=== PATIENT | male | born 1975 | race American Indian/Alaskan Native ===

== ENCOUNTER 2017-05-10 16:31 | Inpatient (IN) | payer OTHER ==
[2017-05-10] MEDS ORDERED: HYDROmorphone 1 mg/ml ISec IVP STA (17:29)
[2017-05-10] MEDS ORDERED: HYDROmorphone 1 mg/ml ISec ONE (17:38)
--- NOTE | 2017-05-10 17:43 | RAD ---
HISTORY: SOB COMPARISON: None available. TECHNIQUE: Chest, one view. FINDINGS: LUNGS: No focal consolidation. Please note that chest x-ray has limited sensitivity for the detection of pulmonary masses. PLEURA: No significant pleural effusion identified. No definite pneumothorax . CARDIOVASCULAR: Heart size appears within normal limits. Ectatic aorta. Right peritracheal opacity; adenopathy is not excluded. OSSEOUS STRUCTURES: No acute osseous abnormality identified. VISUALIZED UPPER ABDOMEN: Unremarkable. OTHER FINDINGS: None. IMPRESSION: Right peritracheal opacity; adenopathy is not excluded. CT of the chest with contrast may be considered if clinically indicated. No focal consolidation, significant pleural effusion, or definite pneumothorax identified.
[2017-05-10 18:06] LABS: BASO # 0.1 K/uL (0.0-0.2); BASO % 0.6 % (0.0-2.0); EOS # 0.3 K/uL (0.0-0.7); EOS % 2.2 % (0.0-4.0); HEMOGLOBIN 12.6 g/dL (12.0-18.0); LYMPH # 3.3 K/uL (1.0-4.3); LYMPH % 26.2 % (20.0-40.0); MEAN CORPUSCULAR HEMOGLOBIN 27.3 pg (27.0-31.0); MEAN CORPUSCULAR HGB CONC 32.5 g/dL (33.0-37.0); MEAN PLATELET VOLUME 6.8 fL (7.2-11.7); MONO # 0.7 K/uL (0.0-0.8); MONO % 5.8 % (0.0-10.0); NEUT # 8.3 K/uL (1.8-7.0); NEUT % 65.2 % (50.0-75.0); RBC 4.6 Mil/uL (4.40-5.90); RED CELL DISTRIBUTION WIDTH 16.4 % (11.5-14.5); WHITE BLOOD COUNT 12.7 K/uL (4.8-10.8)
[2017-05-10 18:07] LABS: SQUAMOUS EPITHIAL 1 /hpf (0-5); URINE BILIRUBIN NEGATIVE (NEGATIVE); URINE BLOOD NEGATIVE (NEGATIVE); URINE CLARITY Hazy (Clear); URINE GLUCOSE (UA) NORMAL (Normal); URINE LEUKOCYTE ESTERASE NEG Leu/uL (Negative); URINE NITRATE NEGATIVE (NEGATIVE); URINE PROTEIN NEGATIVE (NEGATIVE); URINE UROBILINOGEN NORMAL mg/dL (0.2-1.0)
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
[2017-05-10 18:12] LABS: ALBUMIN 3.6 g/dL (3.5-5.0); URINE COLOR YELLOW (YELLOW)
[2017-05-10 18:15] LABS: ALB/GLOB RATIO 1.2 (1.0-2.1); AST/SGOT 35 U/L (17-59); GFR AFRICAN-AMERICAN > 60; GFR NON-AFRICAN AMERICAN > 60
[2017-05-10 18:16] LABS: ALT/SGPT 46 U/L (21-72); BLOOD UREA NITROGEN 10 mg/dL (9-20); CALCIUM 8.6 mg/dl (8.6-10.4)
[2017-05-10 18:21] LABS: BARBITURATES, UR NEGATIVE (NEGATIVE)
[2017-05-10 18:25] LABS: PHENCYCLIDINE, UR NEGATIVE (NEGATIVE)
[2017-05-10 18:39] LABS: BENZODIAZEPINES, UR POSITIVE (NEGATIVE); OPIATES, UR POSITIVE (NEGATIVE)
[2017-05-11] MEDS ORDERED: Iodixanol 320 MG/ML 100 ML BOTTLE IV ONE (10:12)
--- NOTE | 2017-05-11 11:23 | CARD ---
APPROVED REPORT EKG Measurement Heart [id number] <Conclusion> Normal sinus rhythm Low voltage QRS Nonspecific T wave abnormality Abnormal ECG
[2017-05-11] MEDS ORDERED: Gadodiamide 287 mg/ml 20 ml IV ONE (11:53)
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
--- NOTE | 2017-05-11 12:58 | CT ---
EXAM: CT Chest With Intravenous Contrast CLINICAL HISTORY: 41 years old, male; Pain; Other: Back pain & leg pain; Additional info: R/O adenopathy TECHNIQUE: Axial computed tomography images of the chest with intravenous contrast. This CT exam was performed using one or more of the following dose reduction techniques: automated exposure control, adjustment of the mA and/or kV according to patient size, and/or use of iterative reconstruction technique. Coronal and sagittal reformatted images were created and reviewed. CONTRAST: 100 mL of visipaque administered intravenously. EXAM DATE/TIME: 05/11/2017 8:26 AM COMPARISON: No relevant prior studies available. FINDINGS: Lungs: Subsegmental atelectases left greater than right lower lobes. No consolidation. No mass. Pleural space: Unremarkable. No pneumothorax. No significant effusion. Heart: Unremarkable. No cardiomegaly. No significant pericardial effusion. Bones/joints: Spondylosis of the thoracic spine with appearance of diffuse idiopathic skeletal hyperostosis (DISH). No acute fracture. No dislocation. Soft tissues: Unremarkable. Vasculature: Unremarkable. No thoracic aortic aneurysm. Lymph nodes: Mediastinal and hilar nodes of 1 cm and less. IMPRESSION: Subsegmental atelectases left greater than right lower lobes.
[2017-05-11] MEDS: oxyCODONE 30 mg Immediate Release Tab PO PRN (13:03)
[2017-05-11] MEDS: Enoxaparin 40 mg Syringe SC SCH (13:05)
--- NOTE | 2017-05-11 15:38 | MRI ---
PROCEDURE: MRI lumbar spine dated 05/11/2017. HISTORY: Back pain secondary from previous laminectomy. COMPARISON: No prior study available for comparison however correlation made with CT scan abdomen pelvis 02/28/2013 which also image the lumbar spine in 3 planes. TECHNIQUE: Multiecho multiplanar sequences were performed through the lumbar spine before and following intravenous injection of approximately 20 cc of Omniscan contrast material At the L5-S1 level, there is mild age related disc desiccation. Disc space height maintained. The facet joints are quite hypertrophic. . There is mild broad-based disc bulge that reaches the ventral surfaces of the descending S1 nerve roots however the overall central canal is adequate at this level. The exit foramina are mildly narrowed left greater than right. At the L 4 L5 level, there is mild age related disc desiccation. Minor posterior disc space narrowing. Small central and bilateral disc bulge extends slightly into the proximal inferior margin of right exit foramen. The disc results some flattening of the ventral surface of the thecal sac. The overall central canal is minimally narrowed at this level. Facets are hypertrophic and flavum buckled. Exit foramina are also and marginal to minimally narrowed. At the L3-L4 level, there is mild disc desiccation and minor disc space narrowing. Small broad-based disc bulge ridge complex results in flattening of the ventral surface of thecal sac. Facets also quite hypertrophic and flavum buckled. There is moderate central canal stenosis. The exit foramina are mildly narrowed with slight flattening of the anterior inferior borders of both exiting L3 nerve roots. At the L2-L3 level, mild age related disc desiccation and minimal posterior disc space narrowing. No disc herniation or significant disc bulge. Facets are hypertrophic. Central canal appears adequate as do the exit foramina. Similar changes seen at the L1-L2 and T12-L1 levels. . The conus terminates at approximately the T12-L1 level. Impression: Multilevel degenerative spondylosis most notably affecting the L3-L4 and L4-L5 levels with significant hypertrophic facet joint changes at nearly every level
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
[2017-05-12] MEDS: oxyCODONE 30 mg Immediate Release Tab PO PRN ×4 (01:19→18:41)
[2017-05-12] MEDS: Enoxaparin 40 mg Syringe SC SCH (09:18)
[2017-05-12 10:25] LABS: FREE T4 1.15 ng/dL (0.78-2.19)
[2017-05-12] MEDS ORDERED: Gadodiamide 287 mg/ml 20 ml IV ONE (10:37)
[2017-05-12 11:15] LABS: FOLATE 16.1 ng/mL
[2017-05-12] MEDS ORDERED: TIZANIDINE 4 MG PO SCH (15:15)
--- NOTE | 2017-05-12 15:16 | CP.PCM.HP ---
History of Present Illness - History of Present Illness History of Present Illness: pain neck and back radiating to upper and lower extremitis Present on Admission - Present on Admission Any Indicators Present on Admission: No Review of Systems - Review of Systems Systems not reviewed;Unavailable: Acuity of Condition - Constitutional Constitutional: Fatigue - EENT Eyes: As Per HPI Ears: As Per HPI Nose/Mouth/Throat: As Per HPI - Cardiovascular Cardiovascular: As Per HPI - Respiratory Respiratory: Dyspnea on Exertion - Gastrointestinal Gastrointestinal: Constipation - Genitourinary Genitourinary: As Per HPI - Reproductive: Male Reproductive:Male: As Per HPI - Musculoskeletal Musculoskeletal: Arthralgias, Back Pain, Muscle Weakness, Neck Pain, Numbness, Radiating Pain into Limb, Stiffness, Tingling - Integumentary Integumentary: As Per HPI - Neurological Neurological: Numbness, Paresthesias, Tingling, Weakness - Psychiatric Psychiatric: Anxiety - Endocrine Endocrine: As Per HPI - Hematologic/Lymphatic Hematologic: As Per HPI Past Patient History - Past Medical History & Family History Past Medical History?: Yes - Past Social History Smoking Status: Heavy Smoker > 10 Cigarettes Daily - CARDIAC Hx Hypertension: Yes - PULMONARY Hx Respiratory Disorders: No - NEUROLOGICAL Hx Neurological Disorder: Yes Hx Alzheimer's Disease: No HX Cerebrovascular Accident: No Hx Dementia: No Hx Dizziness: No Hx Meningitis: No Hx Migraine: No Hx Multiple Sclerosis: No Hx Paralysis: No Hx Parkinson's Disease: No Hx Seizures: No Hx Syncope: No Hx Transient Ischemic Attacks (TIA): No Hx Vertigo: No Other/Comment: "pins & needles" to fingers & toes, lower back pain since age 13 , carpel tunnel both hands - HEENT Hx HEENT Problems: No - RENAL Hx Chronic Kidney Disease: No - ENDOCRINE/METABOLIC Hx Diabetes Mellitus Type 2: Yes (resolved) - HEMATOLOGICAL/ONCOLOGICAL Hx Blood Disorders: No - INTEGUMENTARY Hx Dermatological Problems: No - MUSCULOSKELETAL/RHEUMATOLOGICAL Hx Arthritis: Yes (BACK; NECK) - GASTROINTESTINAL Hx Gastrointestinal Disorders: No - GENITOURINARY/GYNECOLOGICAL Hx Genitourinary Disorders: No - PSYCHIATRIC Hx Psychophysiologic Disorder: No Hx Substance Use: No - SURGICAL HISTORY Hx Surgeries: Yes Hx Abdominal Aortic Aneurysm Repair: No Hx Amputation: No Hx Angiogram: No Hx Angioplasty: No Hx Appendectomy: No Hx Arteriovenous Shunt: No Hx Arthroscopy: No Hx Bile Duct Stent: No Hx Breast Biopsy: No Hx Cataract Extraction: No Hx Cardiac Catheterization: No Hx Carotid Endarterectomy: No Hx Section: No Hx Cholecystectomy: No Hx Coronary Artery Bypass Graft: No Hx Coronary Stent: No Hx Dilation and Curettage: No Hx Eye Surgery: No Hx Gastric Bypass Surgery: Yes ( stated patient had gastric bypass and resolved DM) Hx Herniorrhaphy: No Hx Hysterectomy: No Hx Joint Replacement: No Hx Kidney Transplant: No Hx Liver Transplant: No Hx Mastectomy: No Hx Musculoskeletal Surgery: No Hx Open Heart Surgery: No Hx Open Reduction Internal Fixation: No Hx Orthopedic Surgery: No Hx Parathyroidectomy: No Hx Penile Implant: No Hx Pulmonary Surgery: No Hx Splenectomy: No Hx Thyroidectomy: No Hx Tonsillectomy: No Hx Tubal Ligation: No Hx Valve Replacement: No Hx Vascular Surgery: No Hx Vascular Access Device: No Other/Comment: 2 laminectomies, gastric bypass, - ANESTHESIA Hx Anesthesia: No Hx Anesthesia Reactions: No Hx Malignant Hyperthermia: No Has any member of the family had a problem w/ anesthesia?: No Meds Allergies/Adverse Reactions: Allergies Allergy/AdvReac Type Severity Reaction Status Date / Time No Known Allergies Allergy Verified 05/10/17 16:47 Physical Exam - Constitutional Appears: Non-toxic - Head Exam Head Exam: NORMAL INSPECTION - Eye Exam Eye Exam: Normal appearance Pupil Exam: NORMAL ACCOMODATION - ENT Exam ENT Exam: Mucous Membranes Moist - Neck Exam Neck exam: Positive for: Tenderness - Respiratory Exam Respiratory Exam: Decreased Breath Sounds - Cardiovascular Exam Cardiovascular Exam: REGULAR RHYTHM - GI/Abdominal Exam GI & Abdominal Exam: Normal Bowel Sounds - Rectal Exam Rectal Exam: NORMAL INSPECTION - Extremities Exam Extremities exam: Positive for: tenderness - Back Exam Back exam: CVA tenderness (L) - Neurological Exam Neurological exam: Alert, Oriented x3 - Psychiatric Exam Psychiatric exam: Normal Mood - Skin Skin Exam: Normal Color Results - Vital Signs Recent Vital Signs: Last Vital Signs Temp 98.4 F 05/12/17 08:00 Pulse 101 H 05/12/17 08:00 Resp 20 05/12/17 08:00 BP 155/76 H 05/12/17 08:00 Pulse Ox 95 05/12/17 08:00 - Labs Result Diagrams: 05/10/17 18:01 05/10/17 18:01 Labs: Laboratory Results - last 24 hr 05/12/17 05/12/17 05/12/17 09:19 09:19 09:19 ESR 5 C-React Prot High Sens 4.02 H Vitamin B12 Folate Free T4 1.15 TSH 3rd Generation 1.49 Rheum Arthritis Panel Negative 05/12/17 09:19 ESR C-React Prot High Sens Vitamin B12 > 1000 H Folate 16.1 Free T4 TSH 3rd Generation Rheum Arthritis Panel Assessment & Plan - Assessment and Plan (Free Text) Assessment: cervical ls disc herniation radiculopathy pain neck and back ac on chronic anexiety carpaltunnel syndrome overwt Plan: as per orders
--- NOTE | 2017-05-12 15:37 | US ---
PROCEDURE: Ultrasound of urinary bladder HISTORY: assess bladder capacity R/O returntion COMPARISON: Not available TECHNIQUE: Transabdominal FINDINGS: The distended urinary bladder measures 407 cc. The wall is smooth. There is no intraluminal mass. There is no gross mural thickening. The examination is somewhat technically limited. Bilateral ureteral jets are demonstrated. Postvoid, there is no residual urine within the bladder. IMPRESSION: No postvoid residual.
[2017-05-12] MEDS: Multiple Vitamins Tab PO SCH (16:45)
[2017-05-12 16:59] LABS: RAPID PLASMA REAGIN NONREACTIVE (NONREACTIVE)
[2017-05-12] MEDS: DICLOFENAC PO SCH (18:35)
[2017-05-13] MEDS: oxyCODONE 30 mg Immediate Release Tab PO PRN ×3 (03:27→20:31)
[2017-05-13] MEDS: Multiple Vitamins Tab PO SCH (09:08)
[2017-05-13] MEDS: Enoxaparin 40 mg Syringe SC SCH (09:10)
[2017-05-13] MEDS: DICLOFENAC PO SCH (09:10)
[2017-05-13] MEDS: TIZANIDINE 4 MG PO SCH (09:10)
[2017-05-13] MEDS: Pantoprazole 40 mg EC Tab PO SCH (09:12)
[2017-05-13 09:27] LABS: BASO # 0.1 K/uL (0.0-0.2); BASO % 1.2 % (0.0-2.0); EOS # 0.4 K/uL (0.0-0.7); EOS % 3.5 % (0.0-4.0); HEMOGLOBIN 12.4 g/dL (12.0-18.0); LYMPH # 3.2 K/uL (1.0-4.3); LYMPH % 28.5 % (20.0-40.0); MEAN CELL VOLUME 85.4 fL (80.0-94.0); MEAN CORPUSCULAR HEMOGLOBIN 27.4 pg (27.0-31.0); MEAN CORPUSCULAR HGB CONC 32.1 g/dL (33.0-37.0); MEAN PLATELET VOLUME 7.3 fL (7.2-11.7); MONO # 0.7 K/uL (0.0-0.8); MONO % 5.9 % (0.0-10.0); NEUT # 6.9 K/uL (1.8-7.0); NEUT % 60.9 % (50.0-75.0); RBC 4.51 Mil/uL (4.40-5.90); RED CELL DISTRIBUTION WIDTH 16.9 % (11.5-14.5); WHITE BLOOD COUNT 11.3 K/uL (4.8-10.8)
[2017-05-13 09:55] LABS: GFR AFRICAN-AMERICAN > 60; GFR NON-AFRICAN AMERICAN > 60
[2017-05-13 09:56] LABS: BLOOD UREA NITROGEN 12 mg/dL (9-20); CALCIUM 8.1 mg/dl (8.6-10.4)
--- NOTE | 2017-05-13 11:01 | CP.PCM.PN ---
Subjective - Date & Time of Evaluation Date of Evaluation: 05/13/17 Time of Evaluation: 10:58 - Subjective Subjective: PT STILL C/O PAIN NECK AND BACK DIFICULTY AMBULATING Objective - Vital Signs/Intake and Output Vital Signs (last 24 hours): Temp Pulse Resp BP Pulse Ox 98.2 F 83 20 154/104 H 95 05/13/17 08:18 05/13/17 08:18 05/13/17 08:18 05/13/17 08:18 05/13/17 08:18 Intake and Output: 05/13/17 05/13/17 06:59 18:59 Intake Total 500 Balance 500 - Medications Medications: Current Medications Alprazolam (Xanax) 0.25 mg PO BID [facility] Stop: 05/19/17 18:01 Last Admin: 05/13/17 09:12 Dose: 0.25 mg Enoxaparin Sodium (Lovenox) 40 mg SC DAILY [facility] Last Admin: 05/13/17 09:10 Dose: 40 mg Gabapentin (Neurontin) 300 mg PO TID [facility] Last Admin: 05/13/17 09:08 Dose: 300 mg Home Med (Patient's Own Medication) 1 tab PO TID [facility] Last Admin: 05/13/17 09:10 Dose: 1 tab Home Med (Patient's Own Medication) 2 tab PO DAILY [facility] Last Admin: 05/13/17 09:10 Dose: 2 tab Morphine Sulfate (Morphine) 1 mg IVP Q6 PRN PRN Reason: Pain, moderate (4-7) Last Admin: 05/13/17 08:32 Dose: 1 mg Multivitamins (Hexavitamin) 1 tab PO DAILY [facility] Last Admin: 05/13/17 09:08 Dose: 1 tab Nicotine (Nicoderm Cq) 1 patch TD DAILY [facility] Last Admin: 05/13/17 09:10 Dose: 1 patch Oxycodone HCl (Oxycodone Immediate Release Tab) 30 mg PO QID PRN PRN Reason: Pain, Mild (1-3) Last Admin: 05/13/17 09:08 Dose: 30 mg Pantoprazole Sodium (Protonix Ec Tab) 40 mg PO DAILY [facility] Last Admin: 05/13/17 09:12 Dose: 40 mg - Labs Labs: 05/13/17 09:03 05/13/17 09:03 - Constitutional Appears: Non-toxic - Head Exam Head Exam: NORMAL INSPECTION - Eye Exam Eye Exam: Normal appearance Pupil Exam: NORMAL ACCOMODATION - ENT Exam ENT Exam: Normal Exam - Neck Exam Neck Exam: Tenderness - Respiratory Exam Respiratory Exam: Clear to Ausculation Bilateral - Cardiovascular Exam Cardiovascular Exam: REGULAR RHYTHM - GI/Abdominal Exam GI & Abdominal Exam: Normal Bowel Sounds - Rectal Exam Rectal Exam: NORMAL INSPECTION - Exam Exam: NORMAL INSPECTION - Extremities Exam Extremities Exam: Normal Inspection - Back Exam Back Exam: CVA tenderness (L) - Neurological Exam Neurological Exam: Alert, Oriented x3 - Psychiatric Exam Psychiatric exam: Normal Affect - Skin Skin Exam: Normal Color Assessment and Plan - Assessment and Plan (Free Text) Assessment: DTDD NECK AND BACK 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
--- NOTE | 2017-05-13 12:02 | CP.PCM.CON ---
History of Present Illness - History of Present Illness History of Present Illness: dictated SEVERE spinal cord compression with signal change at C4/5 requires decompression in near future d/w Pt and , agreeable will schedule in am Past Patient History - Past Medical History & Family History Past Medical History?: Yes - Past Social History Smoking Status: Heavy Smoker > 10 Cigarettes Daily - CARDIAC Hx Hypertension: Yes - PULMONARY Hx Respiratory Disorders: No - NEUROLOGICAL Hx Neurological Disorder: Yes Hx Alzheimer's Disease: No HX Cerebrovascular Accident: No Hx Dementia: No Hx Dizziness: No Hx Meningitis: No Hx Migraine: No Hx Multiple Sclerosis: No Hx Paralysis: No Hx Parkinson's Disease: No Hx Seizures: No Hx Syncope: No Hx Transient Ischemic Attacks (TIA): No Hx Vertigo: No Other/Comment: "pins & needles" to fingers & toes, lower back pain since age 13 , carpel tunnel both hands - HEENT Hx HEENT Problems: No - RENAL Hx Chronic Kidney Disease: No - ENDOCRINE/METABOLIC Hx Diabetes Mellitus Type 2: Yes (resolved) - HEMATOLOGICAL/ONCOLOGICAL Hx Blood Disorders: No - INTEGUMENTARY Hx Dermatological Problems: No - MUSCULOSKELETAL/RHEUMATOLOGICAL Hx Arthritis: Yes (BACK; NECK) - GASTROINTESTINAL Hx Gastrointestinal Disorders: No - GENITOURINARY/GYNECOLOGICAL Hx Genitourinary Disorders: No - PSYCHIATRIC Hx Psychophysiologic Disorder: No Hx Substance Use: No - SURGICAL HISTORY Hx Surgeries: Yes Hx Abdominal Aortic Aneurysm Repair: No Hx Amputation: No Hx Angiogram: No Hx Angioplasty: No Hx Appendectomy: No Hx Arteriovenous Shunt: No Hx Arthroscopy: No Hx Bile Duct Stent: No Hx Breast Biopsy: No Hx Cataract Extraction: No Hx Cardiac Catheterization: No Hx Carotid Endarterectomy: No Hx Section: No Hx Cholecystectomy: No Hx Coronary Artery Bypass Graft: No Hx Coronary Stent: No Hx Dilation and Curettage: No Hx Eye Surgery: No Hx Gastric Bypass Surgery: Yes ( stated patient had gastric bypass and resolved DM) Hx Herniorrhaphy: No Hx Hysterectomy: No Hx Joint Replacement: No Hx Kidney Transplant: No Hx Liver Transplant: No Hx Mastectomy: No Hx Musculoskeletal Surgery: No Hx Open Heart Surgery: No Hx Open Reduction Internal Fixation: No Hx Orthopedic Surgery: No Hx Parathyroidectomy: No Hx Penile Implant: No Hx Pulmonary Surgery: No Hx Splenectomy: No Hx Thyroidectomy: No Hx Tonsillectomy: No Hx Tubal Ligation: No Hx Valve Replacement: No Hx Vascular Surgery: No Hx Vascular Access Device: No Other/Comment: 2 laminectomies, gastric bypass, - ANESTHESIA Hx Anesthesia: No Hx Anesthesia Reactions: No Hx Malignant Hyperthermia: No Has any member of the family had a problem w/ anesthesia?: No Meds Allergies/Adverse Reactions: Allergies Allergy/AdvReac Type Severity Reaction Status Date / Time No Known Allergies Allergy Verified 05/10/17 16:47 - Medications Medications: Current Medications Alprazolam (Xanax) 0.25 mg PO BID [facility] Stop: 05/19/17 18:01 Last Admin: 05/13/17 09:12 Dose: 0.25 mg Docusate Sodium (Colace) 100 mg PO BID [facility] Enoxaparin Sodium (Lovenox) 40 mg SC DAILY [facility] Last Admin: 05/13/17 09:10 Dose: 40 mg Gabapentin (Neurontin) 300 mg PO TID [facility] Last Admin: 05/13/17 09:08 Dose: 300 mg Home Med (Patient's Own Medication) 2 tab PO DAILY [facility] Last Admin: 05/13/17 09:10 Dose: 2 tab Morphine Sulfate (Morphine) 1 mg IVP Q6 PRN PRN Reason: Pain, moderate (4-7) Last Admin: 05/13/17 08:32 Dose: 1 mg Multivitamins (Hexavitamin) 1 tab PO DAILY [facility] Last Admin: 05/13/17 09:08 Dose: 1 tab Nicotine (Nicoderm Cq) 1 patch TD DAILY [facility] Last Admin: 05/13/17 09:10 Dose: 1 patch Oxycodone HCl (Oxycodone Immediate Release Tab) 30 mg PO QID PRN PRN Reason: Pain, Mild (1-3) Last Admin: 05/13/17 09:08 Dose: 30 mg Pantoprazole Sodium (Protonix Ec Tab) 40 mg PO DAILY [facility] Last Admin: 05/13/17 09:12 Dose: 40 mg Results - Vital Signs Recent Vital Signs: Last Vital Signs Temp 98.2 F 05/13/17 08:18 Pulse 83 05/13/17 08:18 Resp 20 05/13/17 08:18 BP 154/104 H 05/13/17 08:18 Pulse Ox 95 05/13/17 08:18 - Labs Result Diagrams: 05/13/17 09:03 05/13/17 09:03 Labs: Laboratory Results - last 24 hr 05/12/17 05/13/17 05/13/17 09:19 09:03 09:03 WBC 11.3 H RBC 4.51 Hgb 12.4 Hct 38.5 MCV 85.4 MCH 27.4 MCHC 32.1 L RDW 16.9 H Plt Count 300 MPV 7.3 Neut % (Auto) 60.9 Lymph % (Auto) 28.5 Warrick % (Auto) 5.9 Eos % (Auto) 3.5 Baso % (Auto) 1.2 Neut # 6.9 Lymph # 3.2 Warrick # 0.7 Eos # 0.4 Baso # 0.1 Sodium 137 Potassium 4.0 Chloride 101 Carbon Dioxide 26 Anion Gap 14 BUN 12 Creatinine 0.5 L Est GFR ( Amer) > 60 Est GFR (Non-Af Amer) > 60 POC Glucose (mg/dL) Random Glucose 121 H Calcium 8.1 L Rheum Arthritis Panel Negative RPR Nonreactive 05/13/17 11:10 WBC RBC Hgb Hct MCV MCH MCHC RDW Plt Count MPV Neut % (Auto) Lymph % (Auto) Warrick % (Auto) Eos % (Auto) Baso % (Auto) Neut # Lymph # Warrick # Eos # Baso # Sodium Potassium Chloride Carbon Dioxide Anion Gap BUN Creatinine Est GFR ( Amer) Est GFR (Non-Af Amer) POC Glucose (mg/dL) 111 H Random Glucose Calcium Rheum Arthritis Panel RPR
[2017-05-13 14:05] LABS: PROTHROMBIN TIME 11.4 SECONDS (9.7-12.2)
--- NOTE | 2017-05-13 16:29 | PN ---
DATE: 05/13/2017 NEUROLOGICAL PROBLEM: Cervical myelopathy, probably herniated disk. Status post fall syndrome. PHYSICAL EXAMINATION: VITAL SIGNS: Blood pressure 154/104, 105, mean arterial pressure of 120, respiratory rate 18, temperature afebrile. NEUROLOGIC: The patient is awake, alert. Mentation is normal. Upper extremities unchanged. 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 The left leg is somewhat weaker than the right leg. Knees are 3+, both ankles are 2+. Plantars are equivocal response on the left side, right side was downgoing. Sensory examination is inconsistent. WORKUP: Bladder sonogram no evidence of retention of the urine. MRI of the cervical spine showed cord compression over C4-C5 region and C5-C6 some lesser extent. More pronounced pressure on his left than his right side. There is some evidence of herniated disk compressing the thoracic level, as well over T2 region. This has to be reviewed with the radiologist. IMPRESSION AND PLAN: Considering his radiological evidence, the patient was started on steroids and a neurosurgical consult was called in. The patient was seen by neurosurgeon this morning and he is scheduled to have decompression surgery tomorrow. Steroids will be continued until the surgery is done. Narcotics should be given only p.r.n. basis. The patient's blood pressure should be controlled as well. The patient's condition has been discussed with him, his and his mother-in- law at the bedside showing the radiological evidence of his problem and the current issues with him. They agree with all of my plan. The patient is scheduled for decompression tomorrow. Cristopher Estrada MD cc: [id number] TT: 05/13/2017 16:28:12 Confirmation # [id number] Dictation # [id number] liz OTERO
--- NOTE | 2017-05-13 17:40 | CON ---
This is a 41-year-old gentleman. Apparently, he has a long history of back problems, was being treat ed by a banner painter, Dr. Parrish, as well as physiotherapy for the past several months . Apparently, the focus was on his lumbar spine. He is status post 2 laminectomy procedures approxi mately 15 years ago. In any case, the patient gives a very clear history of having had pain and dyse sthesias down both arms into his fingers with tingling and incoordination for months. Apparently, he had an EMG performed and was told he had bilateral carpal tunnel. No MRI of the cervical spine was performed. The patient states that approximately 5 days ago he was trying to bottom turner of bed and he fell and was essentially paralyzed. He could not move his legs. He had inability to move his hands with severe pain and numbness radiating down both arms. He had to wait 45 minutes for his to come home and help him up. Ultimately, he was brought to the [facility] ER it seems a day or 2 later. His wo rk-up here eventually led to MRI of the cervical spine being performed yesterday, which documented se sherley disk ridge complex at C4-C5 with severe cord compression and signal change. Interviewing the patient today, he states that since the actual event, he has fortuitously improved r emarkably. He still has considerable weakness, particularly in his right leg, difficulty standing an d great difficulty walking. He also notes a fair amount of urinary urgency. He is able to control h is urine, no bowel problems. Notes that the incoordination and numbness in his hands has improved dr stacie and he has now only mild to moderate residual weakness in the hands. PAST MEDICAL HISTORY: Reviewed, mostly significant as above. He has mild hyperglycemia, hypertensio n, peptic ulcer disease. MEDICATIONS AND SOCIAL HISTORY: Reviewed in the chart. PHYSICAL EXAMINATION: He does have 5/5 strength proximally upper extremities; however, finger abduct ion and adduction are significantly weak. Wrist flexion is moderately weak. In the lower extremitie s, he has trace weakness proximally, i.e. hip flexors, knee extensors, distally within normal limits. He has 3+ hyperreflexia from the triceps on down (not the biceps). He has a markedly positive Anya man's on the right, equivocal on the left. Plantars are mute bilaterally. His gait was not tested. He does have good proprioception bilaterally. The MRI of the cervical spine documents a dramatic severe disk ridge complex with severe spinal cord compression, signal change and myelomalacia at the 4-5 level. There is minimal to moderate stenosis at 5-6. MRI of the thoracic spine is a relatively benign study. MRI of the lumbar spine shows moder ate areas of central lateral recess and foraminal stenosis, most prominently at L3-L4. Obviously, th is is not his problem. 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 I expl ained to the patient and his that unequivocally I would recommend relatively urgent decompressio n specifically anterior diskectomy, decompression, fusion and fixation. I showed him the nature of h is pathology on his MRI. I spoke to the at length. We discussed the rationale behind the recom mendation, the details of procedure, potential risks, complications, chance of success and recovery t saad. I answered all their questions. They are interested in proceeding. As it is Sunday, we will h ave to organize the surgery probably tomorrow morning and hope for Sunday. I left my card a nd indicated to the two of them that should they have any questions or concerns in the interim not to hesitate to contact me. In the interim also, we will stop his anti-inflammatory and his Lovenox in preparation for the surgery. Petey Roldan MD cc: [id number] TT: 05/13/2017 17:39:47 liz
[2017-05-13] MEDS ORDERED: methylPREDNISolone 500 MG in Sodium Chloride 0.9% 100 ML IVPB ONE (18:00)
[2017-05-14] MEDS: oxyCODONE 30 mg Immediate Release Tab PO PRN ×4 (02:35→23:28)
[2017-05-14] MEDS: Multiple Vitamins Tab PO SCH (09:05)
[2017-05-14] MEDS: Pantoprazole 40 mg EC Tab PO SCH (09:05)
[2017-05-14] MEDS: TIZANIDINE 4 MG PO SCH (09:07)
[2017-05-14] MEDS ORDERED: methylPREDNISolone 500 MG in Sodium Chloride 0.9% 100 ML IVPB ONE (10:00)
--- NOTE | 2017-05-14 13:10 | MRI ---
PROCEDURE: MRI of the cervical spine dated 05/12/2017 HISTORY: Myelopathy at C7-T1 COMPARISON: No prior TECHNIQUE: Multiecho multiplanar sequences were performed through the cervical spine with and without the use of intravenous before and following intravenous injection of approximately 20 cc of Omniscan contrast material. FINDINGS. Current study reveals no acute compression fractures no retropulsed fragments. . Vertebral bodies exhibit relatively normal stature of. Vertebral bodies and facets normally aligned. 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 . Multilevel degenerative spondylosis. At the C2-C3 level, there is mild disc desiccation and minor anterior disc space narrowing. No disc herniation or significant disc bulge. Facets are slightly overgrown. Central canal and exit foramina are adequate. At the C3-C4 level, there is mild disc desiccation however disc space height is relatively maintained. Small asymmetric central and bilateral (slightly larger on the left and right) disc bulge ridge complex contiguous with hypertrophic uncovertebral joints. The disc ridge complex results in mild central canal narrowing and compression of the ventral surface of the spinal cord left greater than right. The facets are hypertrophic. Exit foramina are stenotic bilaterally right greater than left. At the C 4 C5 level, there is disc desiccation however disc space height is relatively maintained. The large central and bilateral (asymmetrically larger on the right than left) results in significant canal stenosis and significant cord compression. There is appears to be a tiny curvilinear nonenhancing area of increased T2 signal within the cervical spinal cord at this level consistent with gliosis/myelomalacia. . Hypertrophic uncovertebral facet joints with bilateral foraminal stenosis. At the C5-C6 level, there is disc desiccation however disc space height is maintained. Small to medium-sized central and bilateral disc herniation ridge complex also contiguous with hypertrophic uncovertebral joints. The facets are hypertrophic as well. Changes result in significant canal stenosis and cord compression. Exit foramina are stenotic bilaterally. At the C6-C7 level, there is disc desiccation. Disc space height maintained. Small central and bilateral disc herniation ridge complex also results in mild to moderate canal stenosis and cord compression. Exit foramina are stenotic bilaterally due to overgrown uncovertebral facets left greater than right. There are no focal areas of abnormal contrast enhancement seen to suggest discitis osteomyelitis. . 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 There is also a small area of gliosis and/or myelomalacia within the cervical spinal cord at the C4-C5 level. .
--- NOTE | 2017-05-14 13:30 | MRI ---
PROCEDURE: MRI thoracic spine dated 05/12/2017 HISTORY: Myelopathy sensory level at T4-T6 COMPARISON: No prior TECHNIQUE: Multiecho multiplanar sequences were performed through the thoracic spine before and following intravenous injection of approximately 20 cc Omniscan contrast material. Note the examination is somewhat limited by motion artifact FINDINGS: The current study reveals no acute compression fractures nor retropulsed fragments. Mild multilevel chronic appearing anterior wedge deformities seen in the mid thoracic region felt to be degenerative in origin. The vertebral bodies otherwise exhibit normal stature . There is slight increase kyphosis due to the aforementioned at anterior wedge deformities however vertebral bodies and facets otherwise normally aligned. Multilevel bilateral laminectomy defects seen extending from the T4-T5 . Through the T7-T8 levels relieving well was felt to represent pre-existing underlying congenital canal stenosis over these levels. .Additionally, multilevel degenerative spondylosis present Changes include varying degrees of disc space narrowing with cortical endplate irregularity and/tiny chronic Schmorl's node most notably affecting the mid-lower thoracic disc space levels. . At the T6-T7 level, there is also small focal central and bilateral disc bulge complex that does compress the ventral surface of the spinal cord however the overall central canal appears mild to moderately narrowed. . There appears to be underlying mild congenital canal narrowing. No disc herniations nor significant disc bulges seen at the remaining levels. At the at T7-T8 level, there is small asymmetric left-sided ridge disc complex that results in some flattening of the ventral surface of the thecal sac and spinal cord. The central canal at this level is also mildly narrowed. Facet joints are mildly hypertrophic. No definitive focal areas of abnormal signal seen within the visualized spinal cord. There are no focal areas of abnormal contrast enhancement within or along the surfaces of the visualized spinal cord. No evidence of abnormal enhancement within the disc spaces are endplates to suggest discitis osteomyelitis. Mild multilevel facet arthropathy. Conus terminates at approximately the upper T12-L1 level. Impression: Limited motion degraded study Multilevel bilateral laminectomy from the T4 T5 through the T7-T8 levels. Multilevel chronic anterior wedge deformities of the mid to lower thoracic segments felt to be degenerative in origin. The there is a persistent underlying mild congenital canal narrowing. Small central and bilateral focal disc bulge at the T6-T7 level results in mild focal cord compression. There is also a small asymmetric left-sided ridge disc complex that results in some mild flattening of the ventral surface of the thecal sac and cord is well. The No definitive intrinsic signal changes or enhancement within or along the surfaces of the visualized spinal cord. Pop pop core limited
--- NOTE | 2017-05-14 17:43 | CP.PCM.PN ---
Subjective - Date & Time of Evaluation Date of Evaluation: 05/07/17 Time of Evaluation: 17:40 - Subjective Subjective: pt c/o of back pain seen by neurosrgery for tomoro denied any sob or chest pain Objective - Vital Signs/Intake and Output Vital Signs (last 24 hours): Temp Pulse Resp BP Pulse Ox 98.4 F 83 20 146/94 H 98 05/14/17 14:00 05/14/17 14:00 05/14/17 14:00 05/14/17 14:00 05/14/17 14:00 Intake and Output: 05/14/17 05/14/17 06:59 18:59 Intake Total 600 Balance 600 - Medications Medications: Current Medications Alprazolam (Xanax) 0.25 mg PO BID [facility] Stop: 05/19/17 18:01 Last Admin: 05/14/17 09:05 Dose: 0.25 mg Calcium/Vitamin D (Oscal-D 250 Mg-125 Units Tab) 1 tab PO DAILY [facility] Docusate Sodium (Colace) 100 mg PO BID [facility] Last Admin: 05/14/17 09:05 Dose: 100 mg Gabapentin (Neurontin) 300 mg PO TID [facility] Last Admin: 05/14/17 14:01 Dose: 300 mg Home Med (Patient's Own Medication) 2 tab PO DAILY [facility] Last Admin: 05/14/17 09:07 Dose: 2 tab Morphine Sulfate (Morphine) 1 mg IVP Q6 PRN PRN Reason: Pain, moderate (4-7) Last Admin: 05/14/17 13:58 Dose: 1 mg Multivitamins (Hexavitamin) 1 tab PO DAILY [facility] Last Admin: 05/14/17 09:05 Dose: 1 tab Nicotine (Nicoderm Cq) 1 patch TD DAILY [facility] Last Admin: 05/14/17 09:03 Dose: 1 patch Oxycodone HCl (Oxycodone Immediate Release Tab) 30 mg PO QID PRN PRN Reason: Pain, Mild (1-3) Last Admin: 05/14/17 16:20 Dose: 30 mg Pantoprazole Sodium (Protonix Ec Tab) 40 mg PO DAILY [facility] Last Admin: 05/14/17 09:05 Dose: 40 mg - Labs Labs: 05/13/17 09:03 05/13/17 09:03 PT 11.4 SECONDS (9.7-12.2) 05/13/17 13:38 INR 1.0 05/13/17 13:38 APTT 37 SECONDS (21-34) H 05/13/17 13:38 - Constitutional Appears: Non-toxic - Head Exam Head Exam: NORMAL INSPECTION - Eye Exam Eye Exam: Normal appearance Pupil Exam: NORMAL ACCOMODATION - ENT Exam ENT Exam: Mucous Membranes Moist - Respiratory Exam Respiratory Exam: Clear to Ausculation Bilateral - Cardiovascular Exam Cardiovascular Exam: REGULAR RHYTHM - GI/Abdominal Exam GI & Abdominal Exam: Normal Bowel Sounds - Rectal Exam Rectal Exam: NORMAL INSPECTION - Extremities Exam Additional comments: oedeama - Neurological Exam Neurological Exam: Abnormal Gait, Oriented x3 - Psychiatric Exam Psychiatric exam: Normal Affect - Skin Skin Exam: Normal Color Assessment and Plan - Assessment and Plan (Free Text) Assessment: back pain disc hernitio radiculopthy dificulty ambulating dm atrlectasis Plan: pre operative orders
[2017-05-14] MEDS: Calcium-Vit D 250 mg-125 Units Tab UD PO SCH (18:45)
[2017-05-15] MEDS: oxyCODONE 30 mg Immediate Release Tab PO PRN (04:25)
[2017-05-15 07:04] LABS: % CD4 (T HELPER CELL) 58 Percent (30-61); % CD8 (SUPPRESSOR T CELL) 18 Percent (12-42); ABSOLUTE CD4 CELLS 1892 Cells/mcL (490-1740); ABSOLUTE CD8 CELLS 573 Cells/mcL (180-1170); ABSOLUTE LYMPHOCYTES 3259 Cells/mcL (850-3900)
[2017-05-15] MEDS ORDERED: Midazolam 2 MG/2 ML VIAL ONE (07:18)
[2017-05-15] MEDS ORDERED: Propofol 10 mg/ml Inj (20 ML) ONE ×5 (07:19→09:46)
[2017-05-15] MEDS ORDERED: Bupivacaine 0.5% Inj(30mL) ONE (07:48)
[2017-05-15] MEDS ORDERED: cefTRIAXone IV 1 gm in Dextros 0 ML IVPB ONE (07:48)
[2017-05-15] MEDS ORDERED: Absorbable Gelatin Sponge Size 100 ONE (07:48)
[2017-05-15] MEDS ORDERED: Lidocaine 2% w Epi 1:100,000 Inj IJ ONE (07:49)
[2017-05-15] MEDS ORDERED: Thrombin Topical 5,000 IU Spray Kit ONE (07:49)
[2017-05-15] MEDS ORDERED: Bacitracin 50,000 UNIT in Sodium Chloride 0.9% Irrig 1,000 ML IR STA (07:53)
[2017-05-15] MEDS ORDERED: Sodium Chloride 0.9% 20 ML IV ONE (07:57)
[2017-05-15] MEDS ORDERED: Remifentanil 1 mg/3 ml Vial IV ONE ×2 (08:13→10:33)
[2017-05-15] MEDS: ceFAZolin IV 2 gm in Dextrose 1 GM/50 ML BAG IVPB ONE ×2 (08:15→08:47)
[2017-05-15] MEDS ORDERED: Lactated Ringer's 1,000 ML IV ONE ×3 (08:15→10:05)
[2017-05-15] MEDS ORDERED: ceFAZolin IV 2 gm in Dextrose 0 GM/0 ML BAG IVPB ONE (08:19)
[2017-05-15] MEDS ORDERED: Bacitracin Ointment 30 GM TUBE ONE (08:30)
[2017-05-15 08:33] LABS: HEMOGLOBIN 12.6 g/dL (12.0-18.0); MEAN CELL VOLUME 84.5 fL (80.0-94.0); MEAN CORPUSCULAR HEMOGLOBIN 27.1 pg (27.0-31.0); MEAN CORPUSCULAR HGB CONC 32.1 g/dL (33.0-37.0); MEAN PLATELET VOLUME 7.5 fL (7.2-11.7); RBC 4.63 Mil/uL (4.40-5.90); RED CELL DISTRIBUTION WIDTH 16.5 % (11.5-14.5)
[2017-05-15 08:44] LABS: PROTHROMBIN TIME 10.8 SECONDS (9.7-12.2)
[2017-05-15] MEDS ORDERED: Succinylcholine Chloride 20 mg/ml Syr (5 ml) IV ONE (09:59)
[2017-05-15] MEDS: Calcium-Vit D 250 mg-125 Units Tab UD PO SCH (10:05)
[2017-05-15] MEDS: Multiple Vitamins Tab PO SCH (10:05)
[2017-05-15] MEDS: TIZANIDINE 4 MG PO SCH (10:05)
[2017-05-15] MEDS ORDERED: Propofol 10 mg/ml 1,000 MG/100 ML VIAL ONE (10:34)
[2017-05-15] MEDS: Pantoprazole 40 mg EC Tab PO SCH (10:45)
--- NOTE | 2017-05-15 10:50 | RAD ---
Chest x-ray two views History: Preoperative evaluation. Comparison: None available. Findings: Mild venous congestion. Patchy increased markings at the left lung base. Linear transversely oriented increased markings at the left mid to lower lung zone which may represent discoid atelectasis. Clinical correlation and or correlation with chest CT may be helpful if clinically indicated. Heart size within normal limits. Degenerative changes in the spine and shoulders. Impression: Mild venous congestion. Patchy increased markings at the left lung base. Linear transversely oriented increased markings at the left mid to lower lung zone which may represent discoid atelectasis. Clinical correlation and or correlation with chest CT may be helpful if clinically indicated.
[2017-05-15] MEDS ORDERED: HYDROmorphone 1 mg/ml ISec IVP ONE (11:45)
[2017-05-15] MEDS: HYDROmorphone 0.5 mg/0.5 ml ISec IVP PRN ×6 (11:46→14:47)
[2017-05-15] MEDS ORDERED: HYDROmorphone 0.5 mg/0.5 ml ISec ONE (11:46)
[2017-05-15] MEDS ORDERED: Morphine 4 MG/ML VIAL IV PRN (11:54)
--- NOTE | 2017-05-15 12:43 | RAD ---
PROCEDURE: Intraoperative Fluoroscopy. HISTORY: HERNIATED DISC FINDINGS: Fluoroscopic assistance was provided for anterior cervical C4-5 Multiple overlying drains and liss. Clinical correlation.
[2017-05-15 13:34] LABS: 23 KD (IGG) BAND Nonreactive
[2017-05-15] MEDS ORDERED: HYDROmorphone 1 mg/ml ISec ONE (14:47)
[2017-05-15 15:17] LABS: HTLV-I-II AB W/REFL CONF Nonreactive (Nonreactive)
[2017-05-15] MEDS: Lactated Ringer's 1,000 ML IV SCH (17:00)
[2017-05-16] MEDS: Lactated Ringer's 1,000 ML IV SCH ×3 (01:40→11:00)
[2017-05-16] MEDS: TIZANIDINE 4 MG PO SCH (11:00)
[2017-05-16] MEDS: Multiple Vitamins Tab PO SCH (11:02)
[2017-05-16] MEDS: Calcium-Vit D 250 mg-125 Units Tab UD PO SCH (11:05)
[2017-05-16] MEDS: Pantoprazole 40 mg EC Tab PO SCH (11:05)
--- NOTE | 2017-05-16 11:14 | CP.PCM.PN ---
Subjective - Date & Time of Evaluation Date of Evaluation: 05/16/17 Time of Evaluation: 11:11 - Subjective Subjective: s/p cervical disc herniation surgery don yesterday pt still in pain canot raise left arm Objective - Vital Signs/Intake and Output Vital Signs (last 24 hours): Temp Pulse Resp BP Pulse Ox 97.9 F 90 20 161/99 H 99 05/16/17 07:10 05/16/17 07:10 05/16/17 07:10 05/16/17 07:10 05/16/17 07:10 Intake and Output: 05/16/17 05/16/17 06:59 18:59 Intake Total 920 Output Total 590 Balance 330 - Medications Medications: Current Medications Alprazolam (Xanax) 0.25 mg PO BID [facility] Stop: 05/19/17 18:01 Last Admin: 05/16/17 11:02 Dose: 0.25 mg Calcium/Vitamin D (Oscal-D 250 Mg-125 Units Tab) 1 tab PO DAILY [facility] Last Admin: 05/16/17 11:05 Dose: 1 tab Docusate Sodium (Colace) 100 mg PO BID [facility] Last Admin: 05/16/17 11:02 Dose: 100 mg Gabapentin (Neurontin) 300 mg PO TID [facility] Last Admin: 05/16/17 11:02 Dose: 300 mg Home Med (Patient's Own Medication) 2 tab PO DAILY [facility] Last Admin: 05/15/17 10:05 Dose: Not Given Hydromorphone/Sodium Chloride (Dilaudid Ton Container Filler) 6 mg IV Q4H PRN; Protocol PRN Reason: Pain, severe (8-10) Last Admin: 05/16/17 11:00 Dose: 6 mg Lactated Ringer's (Lactated Ringer's) 1,000 mls @ 75 mls/hr IV .[id number] [facility] Multivitamins (Hexavitamin) 1 tab PO DAILY [facility] Last Admin: 05/16/17 11:02 Dose: 1 tab Nicotine (Nicoderm Cq) 1 patch TD DAILY [facility] Last Admin: 05/16/17 11:05 Dose: 1 patch Pantoprazole Sodium (Protonix Ec Tab) 40 mg PO DAILY [facility] Last Admin: 05/16/17 11:05 Dose: 40 mg - Labs Labs: 05/15/17 08:19 05/13/17 09:03 PT 10.8 SECONDS (9.7-12.2) 05/15/17 08:19 INR 1.0 05/15/17 08:19 APTT 21 SECONDS (21-34) D 05/15/17 08:19 - Constitutional Appears: In Acute Distress - Head Exam Head Exam: NORMAL INSPECTION - Eye Exam Eye Exam: Normal appearance Pupil Exam: NORMAL ACCOMODATION - ENT Exam ENT Exam: Normal Exam - Neck Exam Additional comments: has cervical collar on - Respiratory Exam Respiratory Exam: NORMAL BREATHING PATTERN - Cardiovascular Exam Cardiovascular Exam: REGULAR RHYTHM - GI/Abdominal Exam GI & Abdominal Exam: Normal Bowel Sounds - Neurological Exam Neurological Exam: Alert, Oriented x3 - Psychiatric Exam Psychiatric exam: Normal Affect - Skin Skin Exam: Normal Color Assessment and Plan - Assessment and Plan (Free Text) Assessment: s/p cervical disc surgery Plan: as per neuro surgery
--- NOTE | 2017-05-16 11:28 | CP.PCM.PN ---
Subjective - Date & Time of Evaluation Date of Evaluation: 05/16/17 Time of Evaluation: 11:26 - Subjective Subjective: POD 1 doing well feels dec numbness in ue's L delt still plegic,biceps only min weakness otherwise good strength P PT OOb SS eval cont [employer] Objective - Vital Signs/Intake and Output Vital Signs (last 24 hours): Temp Pulse Resp BP Pulse Ox 97.9 F 90 20 161/99 H 99 05/16/17 07:10 05/16/17 07:10 05/16/17 07:10 05/16/17 07:10 05/16/17 07:10 Intake and Output: 05/16/17 05/16/17 06:59 18:59 Intake Total 920 Output Total 590 Balance 330 - Medications Medications: Current Medications Alprazolam (Xanax) 0.25 mg PO BID [facility] Stop: 05/19/17 18:01 Last Admin: 05/16/17 11:02 Dose: 0.25 mg Calcium/Vitamin D (Oscal-D 250 Mg-125 Units Tab) 1 tab PO DAILY [facility] Last Admin: 05/16/17 11:05 Dose: 1 tab Docusate Sodium (Colace) 100 mg PO BID [facility] Last Admin: 05/16/17 11:02 Dose: 100 mg Gabapentin (Neurontin) 300 mg PO TID [facility] Last Admin: 05/16/17 11:02 Dose: 300 mg Home Med (Patient's Own Medication) 2 tab PO DAILY [facility] Last Admin: 05/15/17 10:05 Dose: Not Given Hydromorphone/Sodium Chloride (Dilaudid Technology Lead) 6 mg IV Q4H PRN; Protocol PRN Reason: Pain, severe (8-10) Last Admin: 05/16/17 11:00 Dose: 6 mg Lactated Ringer's (Lactated Ringer's) 1,000 mls @ 75 mls/hr IV .[id number] [facility] Multivitamins (Hexavitamin) 1 tab PO DAILY [facility] Last Admin: 05/16/17 11:02 Dose: 1 tab Nicotine (Nicoderm Cq) 1 patch TD DAILY [facility] Last Admin: 05/16/17 11:05 Dose: 1 patch Pantoprazole Sodium (Protonix Ec Tab) 40 mg PO DAILY [facility] Last Admin: 05/16/17 11:05 Dose: 40 mg - Labs Labs: 05/15/17 08:19 05/13/17 09:03 PT 10.8 SECONDS (9.7-12.2) 05/15/17 08:19 INR 1.0 05/15/17 08:19 APTT 21 SECONDS (21-34) D 05/15/17 08:19
[2017-05-16 13:58] LABS: BASO # 0.1 K/uL (0.0-0.2); BASO % 0.4 % (0.0-2.0); EOS % 0.2 % (0.0-4.0); LYMPH # 4.1 K/uL (1.0-4.3); LYMPH % 26.1 % (20.0-40.0); MEAN CELL VOLUME 84.7 fL (80.0-94.0); MEAN CORPUSCULAR HEMOGLOBIN 27.6 pg (27.0-31.0); MEAN CORPUSCULAR HGB CONC 32.6 g/dL (33.0-37.0); MEAN PLATELET VOLUME 7.3 fL (7.2-11.7); MONO # 1.8 K/uL (0.0-0.8); MONO % 11.2 % (0.0-10.0); NEUT # 9.8 K/uL (1.8-7.0); NEUT % 62.1 % (50.0-75.0); RBC 4.7 Mil/uL (4.40-5.90); RED CELL DISTRIBUTION WIDTH 16.3 % (11.5-14.5); WHITE BLOOD COUNT 15.7 K/uL (4.8-10.8)
[2017-05-16 14:08] LABS: GFR AFRICAN-AMERICAN > 60; GFR NON-AFRICAN AMERICAN > 60
[2017-05-16 14:09] LABS: BLOOD UREA NITROGEN 12 mg/dL (9-20); CALCIUM 8.5 mg/dl (8.6-10.4)
[2017-05-17] MEDS: Lactated Ringer's 1,000 ML IV SCH ×2 (00:28→14:19)
--- NOTE | 2017-05-17 07:30 | CP.PCM.PN ---
Subjective - Date & Time of Evaluation Date of Evaluation: 05/17/17 Time of Evaluation: 07:28 - Subjective Subjective: POST SURGICAL LEFT ARM C4-C5 WEAKNESS SENSORY SYMPTOMS RESOLVED STILL MYELOPATHIC PLAN EMPHERICAL STEROID AVOID NECK MANIPULATION CAT CERVICAL SPINE Objective - Vital Signs/Intake and Output Vital Signs (last 24 hours): Temp Pulse Resp BP Pulse Ox 98.2 F 87 20 143/87 95 05/16/17 23:35 05/16/17 23:35 05/16/17 23:35 05/16/17 23:35 05/16/17 23:35 - Medications Medications: Current Medications Alprazolam (Xanax) 0.25 mg PO BID [facility] Stop: 05/19/17 18:01 Last Admin: 05/16/17 17:45 Dose: 0.25 mg Calcium/Vitamin D (Oscal-D 250 Mg-125 Units Tab) 1 tab PO DAILY [facility] Last Admin: 05/16/17 11:05 Dose: 1 tab Dexamethasone (Decadron Inj) 10 mg IV Q8H [facility] Stop: 05/19/17 07:12 Docusate Sodium (Colace) 100 mg PO BID [facility] Last Admin: 05/16/17 17:45 Dose: 100 mg Gabapentin (Neurontin) 300 mg PO TID [facility] Last Admin: 05/16/17 17:45 Dose: 300 mg Home Med (Patient's Own Medication) 2 tab PO DAILY [facility] Last Admin: 05/16/17 11:00 Dose: Not Given Hydromorphone/Sodium Chloride (Dilaudid Middleware Developer) 6 mg IV Q4H PRN; Protocol PRN Reason: Pain, severe (8-10) Last Admin: 05/17/17 01:28 Dose: 6 mg Lactated Ringer's (Lactated Ringer's) 1,000 mls @ 75 mls/hr IV .[id number] [facility] Last Admin: 05/17/17 00:28 Dose: 75 mls/hr Multivitamins (Hexavitamin) 1 tab PO DAILY [facility] Last Admin: 05/16/17 11:02 Dose: 1 tab Nicotine (Nicoderm Cq) 1 patch TD DAILY [facility] Last Admin: 05/16/17 11:05 Dose: 1 patch Pantoprazole Sodium (Protonix Ec Tab) 40 mg PO DAILY [facility] Last Admin: 05/16/17 11:05 Dose: 40 mg - Labs Labs: 05/16/17 13:45 05/16/17 13:45 PT 10.8 SECONDS (9.7-12.2) 05/15/17 08:19 INR 1.0 05/15/17 08:19 APTT 21 SECONDS (21-34) D 05/15/17 08:19
[2017-05-17] MEDS: Dexamethasone 4 mg/1 ml IV SCH ×3 (07:55→23:09)
--- NOTE | 2017-05-17 09:37 | CT ---
PROCEDURE: CT Cervical Spine without contrast HISTORY: Status post ACDF 2 days ago, new left arm weakness. > COMPARISON: MRI cervical spine without contrast from 05/12/2017 TECHNIQUE: Axial computed tomography images were obtained of the cervical spine without the use of intravenous contrast. Coronal and sagittal reformatted images were created and reviewed. Radiation dose: Total exam DLP = 659.40 mGy-cm. This CT exam was performed using one or more of the following dose reduction techniques: Automated exposure control, adjustment of the mA and/or kV according to patient size, and/or use of iterative reconstruction technique. FINDINGS: VERTEBRAE: There is moderate levoscoliosis in the cervical spine. There is straightening of the cervical spine with loss of normal cervical lordosis. Vertebral alignment is normal. Vertebral height is maintained. There is no acute fracture or spondylolisthesis. Status post ACDF at C4-5. The anterior metallic plate and screw at C4 are well seated. This metallic screw at C5 in is directed caudally. There are postsurgical changes in the left neck with soft tissue emphysema in the T8 muscles related to recent surgery. There is also a 1.0 x 1.2 cm round fluid density lesion in the subcutaneous fat anterior to the platysma and inferior to the left mandible most compatible with a sebaceous cyst. DISCS/SPINAL CANAL/NEURAL FORAMINA: C2-3: Disc osteophyte complex and asymmetric left uncovertebral joint hypertrophy results in moderate left neural foraminal stenosis. No spinal canal stenosis. C3-4: Broad-based disc osteophyte complex and asymmetric left greater than right uncovertebral joint hypertrophy results in severe right and [id number] left neural foraminal stenosis and mild spinal canal stenosis. C4-5: Status post ACDF, there are several foci of air in the left disc space related to recent surgery. There is redemonstration of a broad-based central and right paracentral disc protrusion which results in mild mass effect on the ventral cord and severe spinal canal stenosis. Also noted is asymmetric [id number]-right uncovertebral joint hypertrophy with moderate right and severe left neural foraminal stenosis. In addition, there is apparent abnormal soft tissue in the left far posterolateral and foraminal region which probably results in mass effect on the exiting C5 nerve root. C5-6: Broad-based central disc protrusion indents the ventral cord and results in moderate spinal canal stenosis. Also noted is asymmetric left greater than right uncovertebral joint hypertrophy which results in moderate right and severe left neural foraminal stenosis. C6-7: Broad-based disc osteophyte complex indents the ventral cord and results in moderate spinal canal stenosis. Asymmetric left greater than right uncovertebral joint hypertrophy results in moderate right and severe left neural foraminal stenosis. C7-T1: Broad-based disc osteophyte complex, mild uncovertebral joint hypertrophy and mild bilateral facet arthropathy results in mild bilateral neural foraminal stenosis without spinal canal stenosis. PARASPINAL SOFT TISSUES: Unremarkable. OTHER FINDINGS: Please note evaluation of cervical cord and discs is severely limited on noncontrast CT examination. IMPRESSION: 1. Status post ACDF at C4-5, evaluation of discs and spinal cord is limited on noncontrast CT examination. Allowing for this, redemonstration of broad-based central and right paracentral disc protrusion at C4-5 which results in mild mass effect on the ventral cord and severe spinal canal stenosis. Also noted is moderate right and severe left neural foraminal stenosis. In addition, apparent soft tissue in the left posterolateral and foraminal regions could represent postoperative edematous tissue/granulation tissue or disc however further characterization is limited on CT examination. MRI of the cervical spine without contrast would be helpful for better evaluation of discs and cord. 2. Postsurgical changes in the left neck. 3. Additional comments as described above.
[2017-05-17] MEDS: Pantoprazole 40 mg EC Tab PO SCH (09:56)
[2017-05-17] MEDS: Multiple Vitamins Tab PO SCH (09:59)
[2017-05-17] MEDS: Calcium-Vit D 250 mg-125 Units Tab UD PO SCH (10:00)
[2017-05-17] MEDS: TIZANIDINE 4 MG PO SCH ×2 (10:01→16:06)
--- NOTE | 2017-05-17 14:23 | CP.PCM.PN ---
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 will start po pain meds spoke with Pt and re rec for posterior decompression in near future Objective - Vital Signs/Intake and Output Vital Signs (last 24 hours): Temp Pulse Resp BP Pulse Ox 98.2 F 87 20 143/87 95 05/16/17 23:35 05/16/17 23:35 05/16/17 23:35 05/16/17 23:35 05/16/17 23:35 - Medications Medications: Current Medications Alprazolam (Xanax) 0.25 mg PO BID [facility] Stop: 05/19/17 18:01 Last Admin: 05/17/17 09:56 Dose: 0.25 mg Calcium/Vitamin D (Oscal-D 250 Mg-125 Units Tab) 1 tab PO DAILY [facility] Last Admin: 05/17/17 10:00 Dose: 1 tab Dexamethasone (Decadron Inj) 10 mg IV Q8H [facility] Stop: 05/19/17 07:12 Last Admin: 05/17/17 14:15 Dose: 10 mg Docusate Sodium (Colace) 100 mg PO BID [facility] Last Admin: 05/17/17 09:56 Dose: 100 mg Gabapentin (Neurontin) 300 mg PO TID [facility] Last Admin: 05/17/17 09:59 Dose: 300 mg Home Med (Patient's Own Medication) 2 tab PO DAILY [facility] Last Admin: 05/17/17 10:01 Dose: Not Given Hydromorphone/Sodium Chloride (Dilaudid Outside Contractor Sales) 6 mg IV Q4H PRN; Protocol PRN Reason: Pain, severe (8-10) Last Admin: 05/17/17 11:09 Dose: 6 mg Lactated Ringer's (Lactated Ringer's) 1,000 mls @ 75 mls/hr IV .[id number] [facility] Last Admin: 05/17/17 14:19 Dose: 75 mls/hr Multivitamins (Hexavitamin) 1 tab PO DAILY [facility] Last Admin: 05/17/17 09:59 Dose: 1 tab Nicotine (Nicoderm Cq) 1 patch TD DAILY [facility] Last Admin: 05/17/17 10:00 Dose: 1 patch Pantoprazole Sodium (Protonix Ec Tab) 40 mg PO DAILY [facility] Last Admin: 05/17/17 09:56 Dose: 40 mg - Labs Labs: 05/16/17 13:45 05/16/17 13:45 PT 10.8 SECONDS (9.7-12.2) 05/15/17 08:19 INR 1.0 05/15/17 08:19 APTT 21 SECONDS (21-34) D 05/15/17 08:19
[2017-05-17] MEDS ORDERED: ceFAZolin IV 1 gm in Dextrose 1 GM/50 ML BAG IVPB SCH (16:15)
--- NOTE | 2017-05-17 17:29 | CP.PCM.PN ---
Subjective - Date & Time of Evaluation Date of Evaluation: 05/17/17 Time of Evaluation: 17:26 - Subjective Subjective: pain neck s/p surgery 2 pastiles infected oonig pus canot sleep started ambulating Objective - Vital Signs/Intake and Output Vital Signs (last 24 hours): Temp Pulse Resp BP Pulse Ox 98.1 F 95 H 18 133/92 H 100 05/17/17 16:00 05/17/17 16:00 05/17/17 16:00 05/17/17 16:00 05/17/17 16:00 - Medications Medications: Current Medications Alprazolam (Xanax) 0.25 mg PO BID [facility] Stop: 05/19/17 18:01 Last Admin: 05/17/17 09:56 Dose: 0.25 mg Calcium/Vitamin D (Oscal-D 250 Mg-125 Units Tab) 1 tab PO DAILY [facility] Last Admin: 05/17/17 10:00 Dose: 1 tab Dexamethasone (Decadron Inj) 10 mg IV Q8H [facility] Stop: 05/19/17 07:12 Last Admin: 05/17/17 14:15 Dose: 10 mg Docusate Sodium (Colace) 100 mg PO BID [facility] Last Admin: 05/17/17 09:56 Dose: 100 mg Gabapentin (Neurontin) 300 mg PO TID [facility] Last Admin: 05/17/17 14:57 Dose: 300 mg Home Med (Patient's Own Medication) 2 tab PO DAILY [facility] Last Admin: 05/17/17 16:06 Dose: 2 tab Hydromorphone HCl (Dilaudid) 4 mg PO Q4H PRN PRN Reason: Pain, moderate (4-7) Cefazolin Sodium/Dextrose (Ancef Iv 1 Gm Duplex) 1 gm in 50 mls @ 100 mls/hr IVPB Q8H [facility] Multivitamins (Hexavitamin) 1 tab PO DAILY [facility] Last Admin: 05/17/17 09:59 Dose: 1 tab Nicotine (Nicoderm Cq) 1 patch TD DAILY [facility] Last Admin: 05/17/17 10:00 Dose: 1 patch Oxycodone HCl (Oxycontin Extended Release Tab) 20 mg PO Q12 [facility] Pantoprazole Sodium (Protonix Ec Tab) 40 mg PO DAILY [facility] Last Admin: 05/17/17 09:56 Dose: 40 mg - Labs Labs: 05/16/17 13:45 06/28/17 13:45 PT 10.8 SECONDS (9.7-12.2) 05/15/17 08:19 INR 1.0 05/15/17 08:19 APTT 21 SECONDS (21-34) D 05/15/17 08:19 - Constitutional Appears: Non-toxic - Head Exam Head Exam: NORMAL INSPECTION - Eye Exam Eye Exam: Normal appearance Pupil Exam: NORMAL ACCOMODATION - ENT Exam ENT Exam: Mucous Membranes Moist - Neck Exam Additional comments: has clor on - Respiratory Exam Respiratory Exam: NORMAL BREATHING PATTERN - Cardiovascular Exam Cardiovascular Exam: REGULAR RHYTHM - GI/Abdominal Exam GI & Abdominal Exam: Normal Bowel Sounds - Rectal Exam Rectal Exam: NORMAL INSPECTION - Exam Exam: NORMAL INSPECTION External exam: Lesions (pastuls) - Neurological Exam Neurological Exam: Normal Gait Neuro motor strength exam: Left Upper Extremity: 0 (extend it) - Psychiatric Exam Psychiatric exam: Normal Affect - Skin Skin Exam: Normal Color Assessment and Plan - Assessment and Plan (Free Text) Assessment: s/p neckdisc herniation surgery l a=UEXT PARESIS pastuls Plan: as per orders
[2017-05-17] MEDS: ceFAZolin IV 1 gm in Dextrose 1 GM/50 ML BAG IVPB SCH (18:47)
[2017-05-17] MEDS: oxyCODONE 20 mg ER Tab (oxyCONTIN) PO SCH (22:00)
[2017-05-18 01:04] VITALS: RESP 20
[2017-05-18] MEDS: ceFAZolin IV 1 gm in Dextrose 1 GM/50 ML BAG IVPB SCH ×2 (03:04→10:01)
[2017-05-18 06:35] LABS: BASO % 0.1 % (0.0-2.0); HEMOGLOBIN 12.5 g/dL (12.0-18.0); LYMPH # 1.4 K/uL (1.0-4.3); LYMPH % 8.1 % (20.0-40.0); MEAN CELL VOLUME 84.1 fL (80.0-94.0); MEAN CORPUSCULAR HEMOGLOBIN 27.4 pg (27.0-31.0); MEAN CORPUSCULAR HGB CONC 32.6 g/dL (33.0-37.0); MEAN PLATELET VOLUME 7.3 fL (7.2-11.7); MONO # 1.5 K/uL (0.0-0.8); MONO % 8.7 % (0.0-10.0); NEUT # 14.3 K/uL (1.8-7.0); NEUT % 83.1 % (50.0-75.0); PLATELET COUNT 318 K/uL (130-400); RBC 4.57 Mil/uL (4.40-5.90); RED CELL DISTRIBUTION WIDTH 15.9 % (11.5-14.5); WHITE BLOOD COUNT 17.2 K/uL (4.8-10.8)
[2017-05-18 07:49] LABS: ALBUMIN 3.4 g/dL (3.5-5.0)
[2017-05-18 07:52] LABS: ALB/GLOB RATIO 1.1 (1.0-2.1); GFR AFRICAN-AMERICAN > 60; GFR NON-AFRICAN AMERICAN > 60
[2017-05-18 07:53] LABS: ALT/SGPT 48 U/L (21-72); AST/SGOT 25 U/L (17-59); BLOOD UREA NITROGEN 14 mg/dL (9-20); CALCIUM 8.8 mg/dl (8.6-10.4)
[2017-05-18] MEDS: Dexamethasone 4 mg/1 ml IV SCH (08:00)
[2017-05-18 08:37] LABS: ANISOCYTOSIS SLIGHT; LYMPHOCYTE 11 % (20-40); MONOCYTE 8 % (0-10); NEUTROPHIL 80 % (50-75); PLATELET ESTIMATE NORMAL (NORMAL); REACTIVE LYMPHOCYTES 1 % (0-0); TOTAL CELLS COUNTED 100
[2017-05-18] MEDS: oxyCODONE 20 mg ER Tab (oxyCONTIN) PO SCH (09:53)
[2017-05-18] MEDS: Multiple Vitamins Tab PO SCH (09:55)
[2017-05-18] MEDS: Calcium-Vit D 250 mg-125 Units Tab UD PO SCH (09:55)
[2017-05-18] MEDS: TIZANIDINE 4 MG PO SCH (09:56)
[2017-05-18] MEDS: Pantoprazole 40 mg EC Tab PO SCH (09:56)
--- NOTE | 2017-05-18 12:08 | CP.PCM.PN ---
Subjective - Date & Time of Evaluation Date of Evaluation: 05/18/17 Time of Evaluation: 12:03 - Subjective Subjective: pt still has pain neck s/p sutgery has new thrush in his mouth Objective - Vital Signs/Intake and Output Vital Signs (last 24 hours): Temp Pulse Resp BP Pulse Ox 98.4 F 96 H 20 171/93 H 96 05/18/17 08:06 05/18/17 08:06 05/18/17 08:06 05/18/17 08:06 05/18/17 04:29 - Medications Medications: Current Medications Alprazolam (Xanax) 0.25 mg PO BID [facility] Stop: 05/19/17 18:01 Last Admin: 05/18/17 09:56 Dose: 0.25 mg Calcium/Vitamin D (Oscal-D 250 Mg-125 Units Tab) 1 tab PO DAILY [facility] Last Admin: 05/18/17 09:55 Dose: 1 tab Dexamethasone (Decadron) 4 mg PO Q8H [facility] Last Admin: 05/18/17 09:55 Dose: 4 mg Docusate Sodium (Colace) 100 mg PO BID [facility] Last Admin: 05/18/17 09:56 Dose: 100 mg Gabapentin (Neurontin) 300 mg PO TID [facility] Last Admin: 05/18/17 09:55 Dose: 300 mg Home Med (Patient's Own Medication) 2 tab PO DAILY [facility] Last Admin: 05/18/17 09:56 Dose: 2 tab Hydromorphone HCl (Dilaudid) 4 mg PO Q4H PRN PRN Reason: Pain, moderate (4-7) Last Admin: 05/18/17 10:57 Dose: 4 mg Cefazolin Sodium/Dextrose (Ancef Iv 1 Gm Duplex) 1 gm in 50 mls @ 100 mls/hr IVPB Q8H [facility] Last Admin: 05/18/17 10:01 Dose: 100 mls/hr Multivitamins (Hexavitamin) 1 tab PO DAILY [facility] Last Admin: 05/18/17 09:55 Dose: 1 tab Nicotine (Nicoderm Cq) 1 patch TD DAILY [facility] Last Admin: 05/18/17 09:55 Dose: 1 patch Oxycodone HCl (Oxycontin Extended Release Tab) 20 mg PO Q12 [facility] Last Admin: 05/18/17 09:53 Dose: 20 mg Pantoprazole Sodium (Protonix Ec Tab) 40 mg PO DAILY [facility] Last Admin: 05/18/17 09:56 Dose: 40 mg Zolpidem Tartrate (Ambien) 5 mg PO HS PRN PRN Reason: Insomnia Last Admin: 05/17/17 22:00 Dose: 5 mg - Labs Labs: 05/18/17 06:18 05/18/17 06:18 PT 10.8 SECONDS (9.7-12.2) 05/15/17 08:19 INR 1.0 05/15/17 08:19 APTT 21 SECONDS (21-34) D 05/15/17 08:19 - Constitutional Appears: Non-toxic - Head Exam Head Exam: NORMAL INSPECTION - Eye Exam Eye Exam: Normal appearance Pupil Exam: NORMAL ACCOMODATION - ENT Exam ENT Exam: Mucous Membranes Moist - Neck Exam Additional comments: has neck color - Respiratory Exam Respiratory Exam: Clear to Ausculation Bilateral - Cardiovascular Exam Cardiovascular Exam: REGULAR RHYTHM - GI/Abdominal Exam GI & Abdominal Exam: Normal Bowel Sounds - Rectal Exam Rectal Exam: NORMAL INSPECTION - Exam Exam: NORMAL INSPECTION External exam: NORMAL EXTERNAL EXAM - Back Exam Back Exam: CVA tenderness (L) - Neurological Exam Neurological Exam: Awake Neuro motor strength exam: Left Upper Extremity: 2/1 - Psychiatric Exam Psychiatric exam: Normal Affect - Skin Skin Exam: Warm Assessment and Plan - Assessment and Plan (Free Text) Assessment: s/p neck cervical disc surgery htn weekness l arm htn controled dm Plan: rehab
[2017-05-18] MEDS ORDERED: Nystatin 100,000 Units/ml Oral Susp 5 ml UD PO SCH ×2 (14:00)
--- NOTE | 2017-05-18 15:07 | CP.PCM.PN ---
Subjective - Date & Time of Evaluation Date of Evaluation: 05/18/17 Time of Evaluation: 14:50 - Subjective Subjective: SPINE - POD #3 Pt OOB in chair. Soft collar in place. Taking po. States pre-op pain in arms gone. VSS. Afebrile. Incision clean and dry. Still no active abd of L shoulder/elbow flexion. Sensory intact throughout. Good wrist extensors/triceps. Plan: Await authorization for rehab transfer. CT reviewed - there can be no disc left as entire disc is removed at time of surgery. 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 Most resolve by 6 months so continue observation at this time. Objective - Vital Signs/Intake and Output Vital Signs (last 24 hours): Temp Pulse Resp BP Pulse Ox 98.4 F 96 H 20 171/93 H 96 05/18/17 08:06 05/18/17 08:06 05/18/17 08:06 05/18/17 08:06 05/18/17 04:29 - Medications Medications: Current Medications Alprazolam (Xanax) 0.25 mg PO BID [facility] Stop: 05/19/17 18:01 Last Admin: 05/18/17 09:56 Dose: 0.25 mg Calcium/Vitamin D (Oscal-D 250 Mg-125 Units Tab) 1 tab PO DAILY [facility] Last Admin: 05/18/17 09:55 Dose: 1 tab Dexamethasone (Decadron) 4 mg PO Q8H [facility] Last Admin: 05/18/17 09:55 Dose: 4 mg Docusate Sodium (Colace) 100 mg PO BID [facility] Last Admin: 05/18/17 09:56 Dose: 100 mg Gabapentin (Neurontin) 300 mg PO TID [facility] Last Admin: 05/18/17 14:43 Dose: 300 mg Home Med (Patient's Own Medication) 2 tab PO DAILY [facility] Last Admin: 05/18/17 09:56 Dose: 2 tab Hydromorphone HCl (Dilaudid) 4 mg PO Q4H PRN PRN Reason: Pain, moderate (4-7) Last Admin: 05/18/17 10:57 Dose: 4 mg Cefazolin Sodium/Dextrose (Ancef Iv 1 Gm Duplex) 1 gm in 50 mls @ 100 mls/hr IVPB Q8H [facility] Last Admin: 05/18/17 10:01 Dose: 100 mls/hr Multivitamins (Hexavitamin) 1 tab PO DAILY [facility] Last Admin: 05/18/17 09:55 Dose: 1 tab Nicotine (Nicoderm Cq) 1 patch TD DAILY [facility] Last Admin: 05/18/17 09:55 Dose: 1 patch Nystatin (Nystatin Oral Susp) 5 ml PO QID [facility] Last Admin: 05/18/17 14:43 Dose: 5 ml Oxycodone HCl (Oxycontin Extended Release Tab) 20 mg PO Q12 [facility] Last Admin: 05/18/17 09:53 Dose: 20 mg Pantoprazole Sodium (Protonix Ec Tab) 40 mg PO DAILY [facility] Last Admin: 05/18/17 09:56 Dose: 40 mg Zolpidem Tartrate (Ambien) 5 mg PO HS PRN PRN Reason: Insomnia Last Admin: 05/17/17 22:00 Dose: 5 mg - Labs Labs: 05/18/17 06:18 05/18/17 06:18 PT 10.8 SECONDS (9.7-12.2) 05/15/17 08:19 INR 1.0 05/15/17 08:19 APTT 21 SECONDS (21-34) D 05/15/17 08:19
[2017-05-18 15:38] VITALS: BP 141/84; PULSE 74; TEMP 98.3; O2SAT 97
--- NOTE | 2017-05-18 16:29 | CP.PCM.PN ---
Subjective - Date & Time of Evaluation Date of Evaluation: 05/18/17 Time of Evaluation: 16:29 - Subjective Subjective: Alert, awake, no acute distress. Objective - Vital Signs/Intake and Output Vital Signs (last 24 hours): Temp Pulse Resp BP Pulse Ox 98.3 F 74 20 141/84 97 05/18/17 15:35 05/18/17 15:35 05/18/17 15:35 05/18/17 15:35 05/18/17 15:35 - Medications Medications: Current Medications Alprazolam (Xanax) 0.25 mg PO BID [facility] Stop: 05/19/17 18:01 Last Admin: 05/18/17 09:56 Dose: 0.25 mg Calcium/Vitamin D (Oscal-D 250 Mg-125 Units Tab) 1 tab PO DAILY [facility] Last Admin: 05/18/17 09:55 Dose: 1 tab Dexamethasone (Decadron) 4 mg PO Q8H [facility] Last Admin: 05/18/17 09:55 Dose: 4 mg Docusate Sodium (Colace) 100 mg PO BID [facility] Last Admin: 05/18/17 09:56 Dose: 100 mg Gabapentin (Neurontin) 300 mg PO TID [facility] Last Admin: 05/18/17 14:43 Dose: 300 mg Home Med (Patient's Own Medication) 2 tab PO DAILY [facility] Last Admin: 05/18/17 09:56 Dose: 2 tab Hydromorphone HCl (Dilaudid) 4 mg PO Q4H PRN PRN Reason: Pain, moderate (4-7) Last Admin: 05/18/17 14:50 Dose: 4 mg Cefazolin Sodium/Dextrose (Ancef Iv 1 Gm Duplex) 1 gm in 50 mls @ 100 mls/hr IVPB Q8H [facility] Last Admin: 05/18/17 10:01 Dose: 100 mls/hr Multivitamins (Hexavitamin) 1 tab PO DAILY [facility] Last Admin: 05/18/17 09:55 Dose: 1 tab Nicotine (Nicoderm Cq) 1 patch TD DAILY [facility] Last Admin: 05/18/17 09:55 Dose: 1 patch Nystatin (Nystatin Oral Susp) 5 ml PO QID [facility] Last Admin: 05/18/17 14:43 Dose: 5 ml Oxycodone HCl (Oxycontin Extended Release Tab) 20 mg PO Q12 [facility] Last Admin: 05/18/17 09:53 Dose: 20 mg Pantoprazole Sodium (Protonix Ec Tab) 40 mg PO DAILY [facility] Last Admin: 05/18/17 09:56 Dose: 40 mg Zolpidem Tartrate (Ambien) 5 mg PO HS PRN PRN Reason: Insomnia Last Admin: 05/17/17 22:00 Dose: 5 mg - Labs Labs: 05/18/17 06:18 05/18/17 06:18 PT 10.8 SECONDS (9.7-12.2) 05/15/17 08:19 INR 1.0 05/15/17 08:19 APTT 21 SECONDS (21-34) D 05/15/17 08:19 Assessment and Plan - Assessment and Plan (Free Text) Assessment: Patient is seen and examined. Ambulates slowly. No acute pain . Cleared by neurosurgery for rehab. D/W DR Parrish, will discharge to [facility] rehab today. Steroid to be tapered down as written.
--- NOTE | 2017-05-19 06:52 | CARD ---
APPROVED REPORT EKG Measurement Heart [id number] <Conclusion> Normal sinus rhythm Nonspecific T wave abnormality Abnormal ECG
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
== END 2017-05-18 17:45 | DRG 472 ==
LOC: C.ER 16:31 → MERGE 17:29 → EEVIPCON 17:29 → C.9E 17:29 → C.3T 21:51 → C.9S 05-15 13:25 → C.6T 05-15 17:35
PROVIDERS: ADMIT Internal Medicine; ATTEND Internal Medicine
PROC: 0RG10A0 Fusion of Cervical Vertebral Joint with Interbody Fusion Device, Anterior Approach, Anterior Column, Open Approach (ICD-10-PCS; principal; 2017-05-16)
PROC: 0RT30ZZ Resection of Cervical Vertebral Disc, Open Approach (ICD-10-PCS; 2017-05-16)
DX: M50.021 Cervical disc disorder at C4-C5 level with myelopathy (principal); B37.0 Candidal stomatitis; E11.42 Type 2 diabetes mellitus with diabetic polyneuropathy; J98.11 Atelectasis; I10 Essential (primary) hypertension; E66.01 Morbid (severe) obesity due to excess calories; M62.81 Muscle weakness (generalized); F41.9 Anxiety disorder, unspecified; F17.210 Nicotine dependence, cigarettes, uncomplicated; G56.03 Carpal tunnel syndrome, bilateral upper limbs; Z91.81 History of falling; R26.81 Unsteadiness on feet; R20.2 Paresthesia of skin

== ENCOUNTER 2017-06-14 12:38 | Inpatient (IN) | payer OTHER ==
[2017-06-14 12:39] VITALS: BMI 33.5
--- NOTE | 2017-06-14 14:02 | C.PDOC ---
History Of Present Illness 41-year-old male, w/ long-standing Hx of C Spine, thoracic and lumbar spine with multiple surgeries, presents to the emergency department with complaints of weakness. Patient was getting PT, and states he felt well initially. Patent has chronic weakness in legs and left arm. States he was taking a shower last night, and felt progressively increased weakness in his legs, so he sat down, and was unable to get up. Patient was found by family this morning around 08: 00. Denies any pain at this time/ He notes generalized weakness in legs, but states he is able to move them. Initially, patient had "pins and needles" in his arms that has now improved. Denies any urinary symptoms, bladder/bowel incontinence or retention, saddle anaesthesia, fevers, or any other associated symptoms. No other complaints at this time. Patient was sent in for evaluation by Dr Roldan. Time Seen by Provider: 06/14/17 13:24 Chief Complaint (Nursing): Back Pain History Per: Patient, Family, Other (Dr Roldan) History/Exam Limitations: no limitations Onset/Duration Of Symptoms: Days Current Symptoms Are (Timing): Still Present Past Medical History Reviewed: Historical Data, Nursing Documentation, Vital Signs Vital Signs: Last Vital Signs Temp 98.5 F 06/14/17 13:38 Pulse 114 H 06/14/17 13:38 Resp 16 06/14/17 13:38 BP 122/79 06/14/17 13:38 Pulse Ox 95 06/14/17 14:24 - Medical History PMH: Anxiety, Arthritis (BACK; NECK), HTN, Sleep Apnea Denies: Alzheimer's Disease, Atrial Fibrillation, Cardia Arrhythmia, CHF, Dementia, Fractures, Hypercholesterolemia, Hyperthyroidism, Hypothyroidism, Migraine, Mitral Valve Prolapse, Multiple Sclerosis, Osteoporosis, Parkinson's Disease, Peripheral Edema, Chronic Kidney Disease, Rheumatoid Arthritis, Seizures, TIA Surgical History: Denies: Appendectomy, CABG, Carotid Endarterectomy, Cholecystectomy, Coronary Stent, Pacemaker, Tonsillectomy - [facility] Procedures EXCISION OF CERVICAL VERTEBRA, OPEN APPROACH (05/10/17) EXCISION OF CERVICAL VERTEBRAL DISC, OPEN APPROACH (05/10/17) FUSION CERV JT W INTBD FUS DEV, ANT APPR A COL, OPEN (05/10/17) OPEN BIOPSY OF SOFT TISSUE (04/14/15) PERIANAL EXCISION NEC (04/30/13) RADICAL EXCIS SKIN LES (04/14/15) SKIN REPAIR & PLASTY NEC (04/15/13) Family History: States: No Known Family Hx - Social History Hx Alcohol Use: No Hx Substance Use: No - Immunization History Hx Tetanus Toxoid Vaccination: No Hx Influenza Vaccination: No Hx Pneumococcal Vaccination: No Review Of Systems Except As Marked, All Systems Reviewed And Found Negative. Constitutional: Negative for: Fever Cardiovascular: Negative for: Chest Pain Respiratory: Negative for: Shortness of Breath Gastrointestinal: Negative for: Vomiting Musculoskeletal: Positive for: Back Pain (chronic.), Other (leg swelling.) Neurological: Positive for: Weakness. Negative for: Numbness, Headache, Dizziness Physical Exam - Physical Exam Appears: Non-toxic, No Acute Distress Skin: Warm, Dry, No Rash Head: Atraumatic, Normacephalic Eye(s): bilateral: Normal Inspection, PERRL, EOMI Nose: Normal Oral Mucosa: Moist Lips: Normal Appearing Neck: Normal ROM Cardiovascular: Rhythm Regular, No Murmur Respiratory: Normal Breath Sounds, No Accessory Muscle Use Back: No Vertebral Tenderness, No Decreased ROM, No Paraspinal Tenderness Extremity: Pedal Edema (B/L feet and ankles, questionable new onset), Other ( Able to lift legs. Left weaker than right. ) Extremity: Bilateral: Normal Color And Temperature, Normal ROM Pulses: Left Carotid: Normal, Right Carotid: Normal, Left Radial: Normal, Right Radial: Normal, Left Dorsalis Pedis: Normal, Right Dorsalis Pedis: Normal Neurological/Psych: Oriented x3, Normal Speech, Normal Cognition, No Normal Motor, No Normal Sensation (tingling in both hands) Gait: Unable To Assess Extremity: Right: No Drift, Falls Before 10 Secs, Left: No Drift, Falls Before 10 Secs, Upper: No Drift, Lower: Falls Before 10 Secs ED Course And Treatment O2 Sat by Pulse Oximetry: 95 - Other Rad Cervical spine X-Ray: Viewed By Me, Read By Radiologist Interpretation: Impression: Markedly limited study with suboptimal visualization of the cervical spine as above. Anterior cervical fusion at C4- C5 with intervertebral disc spacer present. Multiple small rounded densities evident anterior to C3 in C4 of unclear significance, appear chronic. Recommend further evaluation with cross-sectional imaging due to limitations of this examination if indicated. Reevaluation Time: 15:53 Reassessment Condition: Unchanged Disposition Discussed With Coy: Petey Roldan Doctor Will See Patient In The: ED - Disposition Disposition: HOSPITALIZED Disposition Time: 15:54 Condition: STABLE - POA Present On Arrival: None - Clinical Impression Clinical Impression: Spinal stenosis of cervicothoracic region - Scribe Statement The provider has reviewed the documentation as recorded by the Scribe (Almaz Davies) All medical record entries made by the Scribe were at my direction and personally dictated by me. I have reviewed the chart and agree that the record accurately reflects my personal performance of the history, physical exam, medical decision making, and the department course for this patient. I have also personally directed, reviewed, and agree with the discharge instructions and disposition.
--- NOTE | 2017-06-14 14:20 | RAD ---
Cervical spine radiographs Indication: History of cervical surgery Comparison: None available Findings: Anterior cervical fusion hardware evident at the C4-C5 level with intervertebral disc spacer present. The cervical spine is not visualized on lateral view beyond C4 adequately. The superior most dens tip is obscured. Multiple small rounded densities evident anterior to C3 in C4 of unclear significance, appear chronic. Limited visualization of the prevertebral soft tissues appears grossly unremarkable. Impression: Markedly limited study with suboptimal visualization of the cervical spine as above. Anterior cervical fusion at C4-C5 with intervertebral disc spacer present. Multiple small rounded densities evident anterior to C3 in C4 of unclear significance, appear chronic. Recommend further evaluation with cross-sectional imaging due to limitations of this examination if indicated.
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
[2017-06-14 16:37] LABS: BASO # 0.1 K/uL (0.0-0.2); BASO % 0.8 % (0.0-2.0); EOS # 0.4 K/uL (0.0-0.7); HEMATOCRIT 38.4 % (35.0-51.0); LYMPH % 27.1 % (20.0-40.0); MEAN CELL VOLUME 84.6 fL (80.0-94.0); MEAN CORPUSCULAR HEMOGLOBIN 27.4 pg (27.0-31.0); MEAN CORPUSCULAR HGB CONC 32.4 g/dL (33.0-37.0); MEAN PLATELET VOLUME 6.8 fL (7.2-11.7); MONO # 0.6 K/uL (0.0-0.8); MONO % 5.5 % (0.0-10.0); RED CELL DISTRIBUTION WIDTH 15.8 % (11.5-14.5); WHITE BLOOD COUNT 10.9 K/uL (4.8-10.8)
[2017-06-14 16:59] LABS: CHLORIDE 98 mmol/L (98-107); SODIUM 138 mmol/L (132-148)
[2017-06-14 17:01] LABS: GFR AFRICAN-AMERICAN > 60
[2017-06-14 17:02] LABS: ALB/GLOB RATIO 1.2 (1.0-2.1); ALKALINE PHOSPHATASE 81 U/L (38-126); ALT/SGPT 71 U/L (21-72); AST/SGOT 81 U/L (17-59); BILIRUBIN,TOTAL 0.5 mg/dL (0.2-1.3); BLOOD UREA NITROGEN 7 mg/dL (9-20); CALCIUM 8.5 mg/dl (8.6-10.4); CARBON DIOXIDE 28 mmol/L (22-30); GLUCOSE,RANDOM 147 mg/dL (75-110); TOTAL PROTEIN 6.4 g/dL (6.3-8.3)
[2017-06-14] MEDS: oxyCODONE 20 mg ER Tab (oxyCONTIN) PO SCH (19:20)
[2017-06-14] MEDS ORDERED: oxyCODONE 20 mg ER Tab (oxyCONTIN) PO SCH (22:00)
[2017-06-14] MEDS: oxyCODONE 30 mg Immediate Release Tab PO PRN (23:03)
[2017-06-15] MEDS ORDERED: oxyCODONE 30 mg Immediate Release Tab PO SCH
[2017-06-15] MEDS: oxyCODONE 20 mg ER Tab (oxyCONTIN) PO SCH ×2 (06:18→19:25)
[2017-06-15 07:02] LABS: BASO % 0.3 % (0.0-2.0); EOS % 0.1 % (0.0-4.0); HEMATOCRIT 38.1 % (35.0-51.0); LYMPH # 1.1 K/uL (1.0-4.3); LYMPH % 11.8 % (20.0-40.0); MEAN CELL VOLUME 85.8 fL (80.0-94.0); MEAN CORPUSCULAR HEMOGLOBIN 27.4 pg (27.0-31.0); MEAN CORPUSCULAR HGB CONC 31.9 g/dL (33.0-37.0); MEAN PLATELET VOLUME 7.2 fL (7.2-11.7); MONO # 0.3 K/uL (0.0-0.8); MONO % 2.9 % (0.0-10.0); NRBC % 0.1 % (0.0-2.0); WHITE BLOOD COUNT 9.6 K/uL (4.8-10.8)
[2017-06-15 07:12] LABS: ALKALINE PHOSPHATASE 65 U/L (38-126); ALT/SGPT 67 U/L (21-72); AST/SGOT 66 U/L (17-59); BILIRUBIN,TOTAL < 0.1 mg/dL (0.2-1.3); BLOOD UREA NITROGEN 10 mg/dL (9-20); CALCIUM 8.4 mg/dl (8.6-10.4); CARBON DIOXIDE 32 mmol/L (22-30); CHLORIDE 97 mmol/L (98-107); GFR AFRICAN-AMERICAN > 60; GLUCOSE,RANDOM 121 mg/dL (75-110); MAGNESIUM 2.1 mg/dL (1.6-2.3); PHOSPHOROUS 4.4 mg/dL (2.5-4.5); POTASSIUM 4.5 mmol/L (3.6-5.2); SODIUM 138 mmol/L (132-148); TOTAL PROTEIN 5.7 g/dL (6.3-8.3)
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
[2017-06-15 07:34] LABS: ALB/GLOB RATIO 1.3 (1.0-2.1)
--- NOTE | 2017-06-15 10:41 | MRI ---
PROCEDURE: MR CERVICAL SPINE WITHOUT CONTRAST K on your HISTORY: new weakness/numbness COMPARISON: None available. TECHNIQUE: Multiecho multiplanar sequences were performed through the cervical spine without the use of intravenous contrast. FINDINGS: There is normal alignment of the cervical vertebral bodies. Status post ACDF at C4-5. There is normal cervical lordosis. Vertebral height is normal. Do there is focal increased bone marrow signal in the C5 vertebral body, otherwise, bone marrow signal is within normal limits. There is a congenitally narrow spinal canal from congenital short pedicles. The cervical cord is normal in caliber, contour and has normal intrinsic signal. C2-C3: Broad-based disc osteophyte complex and mild bilateral facet arthropathy result in mild neural foraminal stenosis. No central spinal canal stenosis. C3-C4: Broad-based disc osteophyte complex abuts the ventral cord and results in moderate to severe spinal canal stenosis. Moderate bilateral facet arthropathy contribute to moderate right and severe left neural foraminal stenosis. C4-C5: Broad-based disc osteophyte complex results in mild mass effect on the ventral cord and severe spinal canal stenosis. Moderate bilateral facet arthropathy contributes to severe neural foraminal stenosis. C5-C6: Broad-based disc osteophyte complex abuts the ventral cord and results in moderate spinal canal stenosis. Also noted are bilateral posterolateral disc protrusions. Severe right and moderate left facet arthropathy contributes to severe right and [id number] left neural foraminal stenosis. C6-C7: Broad-based central disc protrusion and bilateral posterolateral protrusions indents the ventral thecal sac and results in moderate spinal canal stenosis. Moderate bilateral said facet arthropathy contribute to severe bilateral neural foraminal stenosis. C7-T1: Disc osteophyte complex and bilateral posterolateral disc protrusions in conjunction with moderate facet arthropathy result in severe bilateral neural foraminal stenosis. OTHER FINDINGS: The paraspinous soft tissues are normal. IMPRESSION: 1. 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 No definite intrinsic cord signal abnormality although examination at this level is limited due to susceptibility artifacts from hardware. Also noted is severe bilateral neural foraminal stenosis. 2. Additional comments as described above.
--- NOTE | 2017-06-15 11:01 | MRI ---
PROCEDURE: MR LUMBAR SPINE WITHOUT CONTRAST HISTORY: new leg weakness COMPARISON: None available. TECHNIQUE: Multiecho multiplanar sequences were performed through the lumbar spine without the use of intravenous contrast. FINDINGS: There is normal alignment of the lumbar vertebral bodies. Lumbar lordosis is maintained. Vertebral bodies are normal in height. There is normal bone marrow signal. There is no acute fracture or marrow infiltrative process. There is a congenitally narrow spinal canal from congenital short pedicles. The conus medullaris terminates at a normal level. There is clumping and undulation of the nerve roots of cauda equina. T12-L1: No disc herniation, spinal canal stenosis or neural foraminal narrowing. L1-2: No disc herniation, spinal canal stenosis or neural foraminal narrowing. L2-3: Posterior disc bulge in conjunction with mild ligamentum flavum infolding results in mild thecal sac stenosis without central spinal canal stenosis. Moderate bilateral facet arthropathy contributes to mild neural foraminal stenosis. L3-4: Diffuse posterior disc bulge with a central annular tear and superimposed central disc protrusion in conjunction with moderate ligamentum flavum infolding results in mild spinal canal stenosis. Severe bilateral facet arthropathy contributes to moderate neural foraminal stenosis. L4-5: Posterior disc bulge in conjunction with superimposed right foraminal disc protrusion with moderate ligamentum flavum infolding results in mild spinal canal stenosis. Severe bilateral facet arthropathy contributes to moderate neural foraminal stenosis, worse on the right. L5-S1: Broad-based posterior disc bulge in conjunction with severe facet arthropathy with small facet joint effusions result in moderate neural foraminal stenosis. No central spinal canal stenosis. OTHER FINDINGS: The paraspinous soft tissues are normal. Imaged portion of the retroperitoneum is within normal limits. IMPRESSION: 1. Multilevel degenerative disc disease superimposed on a congenitally narrow spinal canal from congenital short pedicles, worse at L3-4 with mild spinal canal stenosis and moderate neural foraminal stenosis. 2. Clumping and undulation of the nerve roots of cauda equina could be related to a congenitally narrow spinal canal. Arachnoiditis is a differential consideration in the appropriate clinical setting however evaluation is limited in the absence of intravenous contrast.
[2017-06-15] MEDS: oxyCODONE 30 mg Immediate Release Tab PO PRN ×2 (16:20→23:51)
[2017-06-15] MEDS ORDERED: Sodium Chloride 0.9% 1,000 ML IV SCH (20:45)
[2017-06-15] MEDS: Sodium Chloride 0.9% 1,000 ML IV SCH (22:24)
[2017-06-16] MEDS: oxyCODONE 20 mg ER Tab (oxyCONTIN) PO SCH ×2 (06:03→19:28)
--- NOTE | 2017-06-16 06:36 | PN ---
DATE: 06/15/2017 SUBJECTIVE: Following up the patient had his MRI for the cervical and lumbar spine, basically, these are unchanged. The cervical shows continued stenosis at the cephalad 3-4 level and to a less extent at 5-6, possibly 6-7; 4-5 was reddish, stenotic still, but obviously there was tremendous artifact there and probably really not the case. In any case, there is nothing new there. Similarly, the lumbar spine demonstrates again disc disease and [id number] stenosis at 3-4 and 4-5. The good news is that Mr. Ballesteros has improved dramatically overnight. He ambulates to the bathroom of his own accord today. Hand strength is back. He still has a tingling interestingly more in the ulnar fingers than . PHYSICAL EXAMINATION MUSCULOSKELETAL: Shows excellent strength throughout. Tinel's sign at both the elbows is relatively equivocal. IMPRESSION AND PLAN: From my standpoint, I discussed with the patient and his my recommendation that I had related to them a couple of times before that at this point, we should probably perform a posterior decompression specifically a open-door cervical laminoplasty. I think this would engender the most definitive way of completely decompressing his cervical spine which we would presume as once again his problem. They are in full agreement with the plan. At this point, the medical team is going to finish working him up with a Doppler of his lower extremities and then he can go home. I will most likely arrange for the procedure as indicated above next week. Petey Roldan MD
[2017-06-16 08:37] LABS: CHLORIDE 97 mmol/L (98-107); POTASSIUM 3.8 mmol/L (3.6-5.2); SODIUM 137 mmol/L (132-148)
[2017-06-16 08:39] LABS: ALB/GLOB RATIO 1.2 (1.0-2.1); ALKALINE PHOSPHATASE 94 U/L (38-126); ALT/SGPT 68 U/L (21-72); AST/SGOT 51 U/L (17-59); BILIRUBIN,TOTAL 0.4 mg/dL (0.2-1.3); BLOOD UREA NITROGEN 10 mg/dL (9-20); CARBON DIOXIDE 29 mmol/L (22-30); GFR AFRICAN-AMERICAN > 60; TOTAL PROTEIN 6.5 g/dL (6.3-8.3)
[2017-06-16 08:40] LABS: CALCIUM 8.9 mg/dl (8.6-10.4); GLUCOSE,RANDOM 150 mg/dL (75-110); MAGNESIUM 1.9 mg/dL (1.6-2.3); PHOSPHOROUS 2.7 mg/dL (2.5-4.5)
[2017-06-16 08:42] LABS: BASO % 0.1 % (0.0-2.0); HEMATOCRIT 39.1 % (35.0-51.0); LYMPH # 1.7 K/uL (1.0-4.3); LYMPH % 11.2 % (20.0-40.0); MEAN CELL VOLUME 84.3 fL (80.0-94.0); MEAN CORPUSCULAR HEMOGLOBIN 27.4 pg (27.0-31.0); MEAN CORPUSCULAR HGB CONC 32.5 g/dL (33.0-37.0); MEAN PLATELET VOLUME 7.4 fL (7.2-11.7); MONO % 6.2 % (0.0-10.0); NRBC % 0.1 % (0.0-2.0)
[2017-06-16 08:47] LABS: WHITE BLOOD COUNT 15.4 K/uL (4.8-10.8)
[2017-06-16 09:09] LABS: THYROID STIMULATING HORMONE 0.08 mIU/L (0.46-4.68)
--- NOTE | 2017-06-16 09:57 | CON ---
DATE: 06/14/2017 HISTORY OF PRESENT ILLNESS: This is a 42-year-old gentleman, very well known to me, presented approximately 6 weeks ago at the [facility] with an acute spinal cord injury. He fell, could not get up, states he was totally paralyzed temporarily, brought to the [facility] ER, admitted, worked up, was found to have severe OPLL of the spondylotic ridge, severely impacting the cord at C4-5 with lavon myelomalacia and signal change. The patient underwent relatively urgent decompression by anterior discectomy, fixation, and fusion at C4-5. Postoperatively, the patient did relatively well. He noted marked improvement in his strength, in his functioning, in his ambulation, and particularly in his tingling and coordination of his hands. 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 In any case, he was discharged to rehab, did well. I saw him in my office approximately 2 weeks ago where he was continuing to improve. However, last night while in the shower, he began to experience insidious and rapidly progressive weakness, drops him to the floor, was unable to get up. His actually found him in the shower this morning. She was able to get him upright and actually to the ER, but he *------* significant scattered weakness in his legs and difficulty walking. He notes the reoccurrence of tingling in both hands, however, no upper extremity weakness. Also denies any bowel or bladder dysfunction. PAST MEDICAL HISTORY: All reviewed in the EMR, obviously the same history that of above. Also of note is, he has a known lumbar spine problem, which has been acting up. He has been experiencing rather significant low back pain, has been on high-dose narcotics. PHYSICAL EXAMINATION NEUROLOGY: Interestingly, he seems to have pretty much 5/5 strength throughout with the exception of left shoulder abduction and biceps which remains quite weak. Sensation is grossly intact. He has excellent proprioception in his toes bilaterally. Reflexes remain quite brisk, hyperreflexic, this is unchanged. Plain film of the cervical spine shows excellent position of his construct that is the anterior plate, the 2 intravertebral screws and the interbody spacer. IMPRESSION AND PLAN: Very unusual syndrome, unclear why the patient would deteriorate relatively rapidly months postop. Unfortunately, I think we are obligated to admit the patient and work him up rather extensively. I have already ordered MRI of the cervical, lumbar, and thoracic spine as there is really no localizing level. I spoke to the hospitalist about taking a look at him from the medical standpoint and admitting him. I am also going to put him on *------* mg of Decadron on a presumptive basis and further management will be predicated on results of his workup. Petey Roldan MD
[2017-06-16] MEDS: Sodium Chloride 0.9% 1,000 ML IV SCH (10:17)
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
[2017-06-16] MEDS: oxyCODONE 30 mg Immediate Release Tab PO PRN ×2 (14:40→23:59)
--- NOTE | 2017-06-16 15:51 | RAD ---
PROCEDURE: Radiographs of the bilateral Tibiae and Fibulae. HISTORY: looking for embedded glass COMPARISON: None available. TECHNIQUE: Frontal and lateral views obtained. FINDINGS: BONES: RIGHT TIBIA: No fracture or destructive lesion. LEFT TIBIA: No fracture or destructive lesion. JOINT SPACES: RIGHT TIBIA: Normal. LEFT TIBIA: Normal. SOFT TISSUES: RIGHT TIBIA: Normal. LEFT TIBIA: Normal. OTHER FINDINGS: No radiopaque foreign body IMPRESSION: No acute fracture. No radiopaque foreign body.
--- NOTE | 2017-06-16 16:11 | RAD ---
PROCEDURE: Bilateral Feet Radiographs. [place] HISTORY: looking for embedded glass COMPARISON: None. FINDINGS: BONES: Bone alignment and mineralization are normal. There is no acute fracture or bone destruction. There are bilateral plantar calcaneal spur and dorsal calcaneal enthesophyte. Os trigonum is present bilaterally. JOINTS: Right Foot: Normal. No osteoarthritis. Left Foot: Normal. No osteoarthritis. SOFT TISSUES: There is moderate dorsal soft tissue swelling in both feet. OTHER FINDINGS: None. IMPRESSION: No acute fracture or dislocation. Moderate dorsal soft tissue swelling in both feet. No radiopaque foreign body.
[2017-06-17] MEDS: Dexamethasone 4 mg/1 ml IV SCH ×3 (05:48→11:00)
[2017-06-17] MEDS: oxyCODONE 20 mg ER Tab (oxyCONTIN) PO SCH (06:00)
[2017-06-17 08:03] VITALS: PULSE 64; RESP 18; TEMP 97; O2SAT 100
[2017-06-17 09:43] LABS: BASO # 0.1 K/uL (0.0-0.2); BASO % 0.5 % (0.0-2.0); EOS # 0.1 K/uL (0.0-0.7); EOS % 0.3 % (0.0-4.0); HEMATOCRIT 45.3 % (35.0-51.0); LYMPH # 2.7 K/uL (1.0-4.3); LYMPH % 17.8 % (20.0-40.0); MEAN CELL VOLUME 85.5 fL (80.0-94.0); MEAN CORPUSCULAR HEMOGLOBIN 27.1 pg (27.0-31.0); MEAN CORPUSCULAR HGB CONC 31.7 g/dL (33.0-37.0); MEAN PLATELET VOLUME 8.2 fL (7.2-11.7); MONO % 6.6 % (0.0-10.0); NRBC % 0.1 % (0.0-2.0); RED CELL DISTRIBUTION WIDTH 16.3 % (11.5-14.5); WHITE BLOOD COUNT 15.3 K/uL (4.8-10.8)
[2017-06-17 09:51] LABS: CHLORIDE 94 mmol/L (98-107); POTASSIUM 3.9 mmol/L (3.6-5.2); SODIUM 137 mmol/L (132-148)
[2017-06-17 09:53] LABS: ALB/GLOB RATIO 1.1 (1.0-2.1); AST/SGOT 46 U/L (17-59); BILIRUBIN,TOTAL 0.5 mg/dL (0.2-1.3); CARBON DIOXIDE 29 mmol/L (22-30); GFR AFRICAN-AMERICAN > 60; TOTAL PROTEIN 6.9 g/dL (6.3-8.3)
[2017-06-17 09:54] LABS: ALKALINE PHOSPHATASE 84 U/L (38-126); ALT/SGPT 62 U/L (21-72); BLOOD UREA NITROGEN 13 mg/dL (9-20); CALCIUM 9.1 mg/dl (8.6-10.4); GLUCOSE,RANDOM 167 mg/dL (75-110); PHOSPHOROUS 4.3 mg/dL (2.5-4.5)
[2017-06-17 10:23] VITALS: BP 144/81
[2017-06-17 10:23] LABS: THYROID STIMULATING HORMONE 0.81 mIU/L (0.46-4.68)
[2017-06-17] MEDS: oxyCODONE 30 mg Immediate Release Tab PO PRN (10:31)
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
--- NOTE | 2017-06-18 08:52 | CARD ---
APPROVED REPORT EXAM: Two-dimensional and M-mode echocardiogram with Doppler and color Doppler. Other Information Quality : GoodRhythm : NSR INDICATION CEREBRAL EDEMA, CERVICAL SPINAL STENOSIS, NEW BILATERAL EXTREMITY LEG SWELLING M-Mode DIMENSIONS RVDd1.11 (2.1-3.2cm)Left Atrium (MM)3.38 (2.5-4.0cm) IVSd1.07 (0.7-1.1cm)Aortic Root3.04 (2.2-3.7cm) LVDd5.16 (4.0-5.6cm)Aortic Cusp Exc.1.34 (1.5-2.0cm) PWd1.07 (0.7-1.1cm)FS (%) 35 % LVDs3.36 (2.0-3.8cm)LVEF (%)64 (>50%) Mitral Valve MV E Bqyhzoxi499.7cm/sMV A Rvmtukzg82.8cm/sE/A ratio1.3 TDI E/Lateral E'0.0E/Medial E'0.0 <Conclusion> Left ventricle: thickness: normal; size: normal; overall ejection fraction: 64%: diastolic filling pressures: normal Mitral valve: annulus: normal: leaflets: normal: excursion: normal; no significant trans-mitral gradient: no significant incompetence: left atrium: normal Aortic valve: leaflets: normal: excursion: normal; no significant trans-aortic gradient: No significant incompetence: aortic root: normal Right sided Structures: Pulmonary valve: normal; no significant incompetence; Tricuspid valve: normal; no significant incompetence: Intra-cardiac hemodynamics: pulmonary systolic pressures: normal; central venous pressures: normal No pericardial effusion
--- NOTE | 2017-06-18 14:45 | VASCLAB ---
PROCEDURE: Lower Extremity Venous Duplex Exam. HISTORY: new bilateral extremity leg swelling PRIORS: None. TECHNIQUE: Bilateral common femoral, femoral, popliteal and posterior tibial, peroneal and great saphenous veins were evaluated. Flow was assessed with color Doppler, compressibility, assessment of phasic flow and augmentation response. Report prepared by Umberto Clarke, T FINDINGS: RIGHT: 1. Common Femoral Vein: 1.1. Compressibility - Fully compressible: Thrombus - None : Flow - Phasic: Augmentation -Normal: Reflux - . 2. Femoral Vein: 2.1. Compressibility - Fully compressible: Thrombus - None : Flow - Phasic: Augmentation -Normal: Reflux - . 3. Popliteal Vein: 3.1. Compressibility - Fully compressible: Thrombus - None : Flow - Phasic: Augmentation -Normal: Reflux - . 4. Posterior Tibial Vein: 4.1. Compressibility - Fully compressible: Thrombus - None: Flow - : Augmentation -: Reflux - . 5. Peroneal Vein: 5.1. Compressibility - Fully compressible: Thrombus - None: Flow - : Augmentation -: Reflux - . 6. Great Saphenous Vein: 6.1. Compressibility - Fully compressible: Thrombus - None: Flow - : Augmentation - : Reflux - . LEFT: 1. Common Femoral Vein: 1.1. Compressibility - Fully compressible: Thrombus - None: Flow - Phasic: Augmentation -Normal: Reflux - . 2. Femoral Vein: 2.1. Compressibility - Fully compressible: Thrombus - None: Flow - Phasic: Augmentation -Normal: Reflux - . 3. Popliteal Vein: 3.1. Compressibility - Fully compressible: Thrombus - None : Flow - Phasic: Augmentation -Normal: Reflux - . 4. Posterior Tibial Vein: 4.1. Compressibility - Fully compressible: Thrombus - None: Flow - : Augmentation -: Reflux - . 5. Peroneal Vein: 5.1. Compressibility - Fully compressible: Thrombus - None: Flow - : Augmentation -: Reflux - . 6. Great Saphenous Vein: 6.1. Compressibility - Fully compressible: Thrombus - None: Flow - : Augmentation - : Reflux - . OTHER FINDINGS: Right: None significant. Left: None significant. IMPRESSION: Right: No evidence of deep or superficial vein thrombosis of the right lower extremity. Left: No evidence of deep or superficial vein thrombosis of the left lower extremity.
== END 2017-06-17 12:03 | disposition home or self-care (01) | DRG 552 ==
LOC: C.ER 12:38 → C.9E 15:56 → C.6T 17:48
PROVIDERS: ADMIT Family Medicine; ATTEND Family Medicine
DX: M50.321 Other cervical disc degeneration at C4-C5 level (principal); I10 Essential (primary) hypertension; G89.29 Other chronic pain; G47.33 Obstructive sleep apnea (adult) (pediatric); F41.9 Anxiety disorder, unspecified; G47.00 Insomnia, unspecified; F17.200 Nicotine dependence, unspecified, uncomplicated; Z91.19 Patient's noncompliance with other medical treatment and regimen; Z98.84 Bariatric surgery status

== ENCOUNTER 2017-08-15 10:06 | Inpatient (IN) | payer OTHER ==
[2017-08-07 10:26] VITALS: BMI 37.3
[2017-08-15] MEDS ORDERED: ceFAZolin 1 gm FROZEN Premix 0 GM/0 ML ML IVPB ONE (10:36)
[2017-08-15] MEDS ORDERED: Bupivacaine 0.5% Inj(30mL) ONE (10:39)
[2017-08-15] MEDS ORDERED: Absorbable Gelatin Sponge Size 100 ONE (10:39)
[2017-08-15] MEDS ORDERED: Thrombin Topical 5,000 IU Spray Kit ONE ×2 (10:39→11:47)
--- NOTE | 2017-08-15 11:07 | HP ---
DATE: 08/15/2017 HISTORY OF PRESENT ILLNESS: This is a 41-year-old male with history of severe spinal cervical stenosis, spinal cord injury, underwent anterior discectomy fixation and fusion of C4-5 approximately three months ago. It was recommended at that time that he had moderate multilevel stenosis, both above and below and at that time, we suggested to him and his that he may want to consider posterior laminoplastic decompression down the road. He is now actually now being admitted for this procedure. He has been having back and leg pain for some time. He fell and was temporally paralyzed and brought to [facility] in 04/2017 and was found to have a huge C4-5 disc herniation with spinal cord impingement *------* and underwent rather urgent anterior discectomy fixation and fusion. Still has some difficulty walking, some periods of intermittent tingling and numbness. He also has a left C5 weakness, *------* exhibited by difficulty with left shoulder abduction. PAST MEDICAL HISTORY: Significant for hyperglycemia, hypertension, peptic ulcer disease. MEDICATIONS: Include alprazolam, Neurontin, and Protonix. PHYSICAL EXAMINATION: He has 5/5 strength throughout the exception of left shoulder abduction, which he can reach approximately 60 degrees. Sensory exam is grossly intact. Reflexes are improved throughout. Positive Locke's, particularly on the right. Gait is somewhat wide based and unsteady. The MRI showed continued probable OPLL with stenosis at C3-4, C5-6, and C6-7. IMPRESSION AND PLAN: The patient is now being admitted for cervical expansile laminoplasty. The nature of this procedure, the rational behind it, alternative, pros and cons of proceeding, potential risks, benefits, and complications were discussed with him and his over multiple office visits. They fully understood all the above and have elected to proceed. Petey Roldan MD
[2017-08-15] MEDS ORDERED: Lidocaine Hydrochloride 5 ML INJ ONE (11:12)
[2017-08-15] MEDS ORDERED: Midazolam 2 MG/2 ML VIAL ONE (11:12)
[2017-08-15] MEDS ORDERED: Succinylcholine Chloride 20 mg/ml Syr (5 ml) IV ONE (11:12)
[2017-08-15] MEDS ORDERED: Propofol 10 mg/ml Inj (20 ML) ONE ×6 (11:12→14:21)
[2017-08-15] MEDS ORDERED: Phenylephrine 10 mg/ml Inj ONE (11:13)
[2017-08-15] MEDS ORDERED: Remifentanil 1 mg/3 ml Vial IV ONE ×2 (11:19→14:27)
[2017-08-15] MEDS ORDERED: Propofol 10 mg/ml 1,000 MG/100 ML VIAL ONE (11:20)
[2017-08-15] MEDS ORDERED: ceFAZolin IV 1 gm in Dextrose 0 GM/0 ML BAG IVPB ONE (11:35)
[2017-08-15] MEDS ORDERED: ceFAZolin IV 2 gm in Dextrose 1 GM/50 ML BAG IVPB ONE (11:37)
[2017-08-15] MEDS ORDERED: Lactated Ringer's 1,000 ML IV ONE ×2 (11:40)
[2017-08-15] MEDS ORDERED: Thrombin Topical 20,000 Intl Units Spray Kit TOP ONE (11:47)
[2017-08-15] MEDS ORDERED: Lidocaine 1% w Epi 1:100,000 Inj ONE (11:49)
[2017-08-15] MEDS ORDERED: Propofol 10 mg/ml 1,000 MG/100 ML VIAL IV PRN (11:50)
[2017-08-15] MEDS ORDERED: Bacitracin 50,000 UNIT in Sodium Chloride 0.9% Irrig 1,000 ML IR SCH (12:00)
[2017-08-15] MEDS ORDERED: Bacitracin Ointment 30 GM TUBE ONE ×2 (12:06→15:53)
[2017-08-15] MEDS ORDERED: ceFAZolin IV 1 gm in Dextrose 1 GM/50 ML BAG IVPB ONE (12:36)
[2017-08-15] MEDS ORDERED: Labetalol 25mg/5ml Syringe ONE ×2 (13:26→15:07)
[2017-08-15] MEDS ORDERED: Bupivacaine Liposomal Inj 20 ml INFIL ONE (13:45)
[2017-08-15] MEDS ORDERED: Sodium Chloride 0.9% 20 ML IV ONE (14:19)
[2017-08-15] MEDS ORDERED: Silver Sulfadiazine 1% Cream (20 gm) ONE (15:35)
[2017-08-15] MEDS: HYDROmorphone 0.5 mg/0.5 ml ISec IVP PRN ×2 (16:05→16:37)
[2017-08-15] MEDS ORDERED: HYDROmorphone 0.5 mg/0.5 ml ISec ONE (16:05)
--- NOTE | 2017-08-15 16:34 | CP.PCM.PN ---
Subjective - Date & Time of Evaluation Date of Evaluation: 08/15/17 Time of Evaluation: 16:01 - Subjective Subjective: Upon emergence, and undraping, pt's left UE was noted to be swollen likely secondary to infiltrated IV. IV was used for induction and functioning properly at that time. It remained free flowing through entire case (never placed under pressure). IV was removed, pulses were confirmed with US and palpation. Warm compresses applied and arm was elevated. Pulse oximeter had good waveform and reading throughout case. Swollen arm noted to have areas of some epidermal sloughing. Dr. Encarnacion was consulted and will follow patient for wound care management as necessary. Objective - Vital Signs/Intake and Output Vital Signs (last 24 hours): Temp Pulse Resp BP Pulse Ox 97.8 F 101 H 20 107/67 97 08/15/17 10:21 08/15/17 10:21 08/15/17 10:21 08/15/17 10:21 08/15/17 10:21 - Medications Medications: Current Medications Acetaminophen (Tylenol 325mg Tab) 650 mg PO Q6 PRN PRN Reason: Fever >100.4 F Alprazolam (Xanax) 0.25 mg PO BID REJI Stop: 08/22/17 18:01 Gabapentin (Neurontin) 600 mg PO TID REJI Hydrochlorothiazide (Microzide) 12.5 mg PO DAILY REJI Propofol (Diprivan) 1,000 mg in 100 mls @ 3.538 mls/hr IV .Q24H PRN; Protocol; 5 MCG/KG/MIN PRN Reason: TITRATE PER MD ORDER Potassium Chloride/Dextrose/Sod Cl (Potassium Chl 20 Meq In D5-1/2ns) 1,000 mls @ 100 mls/hr IV .Q10H REJI Losartan Potassium (Cozaar) 50 mg PO DAILY REJI
--- NOTE | 2017-08-15 17:38 | RAD ---
PROCEDURE: Intraoperative Fluoroscopy. HISTORY: LAMIOPLASTY FINDINGS: Fluoroscopic assistance was provided for spinal cord compression related procedure Total fluoroscopic time (continuous mode) utilized during the procedure: 13.5 seconds. Submitted images from the current procedure: 6.0. Please refer to the operative report from
[2017-08-15] MEDS: Potassium Ch 20mEq in D5-1/2NS 1,000 ML IV SCH (18:30)
[2017-08-16] MEDS: Potassium Ch 20mEq in D5-1/2NS 1,000 ML IV SCH ×2 (07:33→18:49)
--- NOTE | 2017-08-16 07:45 | CON ---
DATE OF CONSULTATION: 08/15/2017 The consultation was called by Dr. Jamar Angelo. The consultation was done by [place], Dr. Encarnacion. REASON FOR CONSULTATION: The patient with left forearm blisters, status post IV extravasation. CHIEF COMPLAINT: This is a 42-year-old male, immediate postop from cervical laminoplasty with left forearm blisters and IV extravasation. HISTORY OF PRESENT ILLNESS: This is a 42-year-old male with past medical history of hypoglycemia,hypertension, peptic ulcer disease, who was operated today for posterior laminoplasty. The patient intraoperatively found to have extravasation of the IV in the left forearm and the patient also had very small blisters as well as skin loss at some place and surgery consult was done. The patient was seen and examined at the bedside. The patient was in the PACU and the patient is sedated. The left arm was examined. The patient was unable to give any further history due to immediate postoperative status and the history was obtained from the anesthesia as well as from some other OR staff. PAST MEDICAL HISTORY: As described above. PAST SURGICAL HISTORY: As described above. MEDICATIONS: Reviewed. ALLERGIES: NO KNOWN DRUG ALLERGIES. HOME MEDICATIONS: Reviewed. SOCIAL HISTORY: Reviewed. REVIEW OF SYSTEMS: Unable to obtain due to the patient is sedated and the rest of the history was obtained from the anesthesia record as well as from the history and physical. PHYSICAL EXAMINATION: VITAL SIGNS: Pulse is 98, blood pressure is 132/76, the patient saturating 97% at 4 L nasal cannula. GENERAL: The patient is not in acute distress. CARDIOVASCULAR: S1 and S2 normal. There is no murmur. PULMONARY: Bilateral equal air entry. There is no crackle, no rhonchi, no wheezing. EXTREMITIES: Left extremity, has left forearm ventral aspect had small blisters as well as skin loss and there was swelling of the forearm and there was mild swelling of the left lower arm and the patient has a good possible pulses and there is a good capillary refill. NEUROLOGIC: Unable to obtain due to the patient is sedated. LABORATORY VALUE: Unavailable. PREOPERATIVE LABS: Reviewed. ASSESSMENT: This is a 42-year-old male, status post left forearm skin blisters and very small skin loss, status post IV extravasation, status post cervical laminoplasty. PLAN: The patient would need a local wound care with bacitracin as well as Xeroform, and the patient will also need empiric IV antibiotic with Ancef. Continue with current management as per neurosurgery team and we will follow up. The plan was discussed with Dr. Roldan as well as the anesthesia team. We will follow up. Adis Encarnacion MD
--- NOTE | 2017-08-16 08:03 | OP ---
PROCEDURE DATE: 08/15/2017 PREOPERATIVE DIAGNOSIS: Cervical stenosis. POSTOPERATIVE DIAGNOSIS: Cervical stenosis. PROCEDURE: Cervical expansile laminoplasty of C3 through C7, posterolateral fusion with in situ autograft of C4-C5 with left C4-C5 foraminotomy. SURGEON: Petey Roldan MD DRYWALL FINISHER: Eleno Guillen MD ANESTHESIA: General endotracheal. ESTIMATED BLOOD LOSS: 350 mL, 135 mL returned via Cell Saver. COMPLICATIONS: None. JUSTIFICATION: The patient was status post spinal cord injury several months ago wherein he had severe compression at C4-C5 with spinal cord signal change. He underwent relatively urgent anterior decompression and fixation in region of C4-C5. He still has moderate stenosis at C3-C4, C5-C6 and C6-C7 and it was suggested to him at that time and over the past several months that he may want to consider expansile laminoplasty to avoid problems in the future. Additionally, he did have a postoperative C5 syndrome on the left and it was suggested that maybe the nerve root could be further decompressed posteriorly. The pros and cons of proceeding with the procedure, potential risks and complications, recovery time were discussed with him and his at length over several office visits. All their questions were answered. They fully understood the above and elected to proceed as offered. PROCEDURE IN DETAIL: The patient was taken to the operating room. He was hooked up to neurophysiological monitoring, carefully intubated. He was placed in a Ricci 3-point head fixator. He was carefully turned at the unit on to the OR table on chest bolsters, head fixated in a neutral position. Incision localized with lateral fluoroscopy, traced out overlying spinous processes of C2 down to T1. This was infiltrated with lidocaine. After prepping and draping, the incision was made with a #10 blade and carried down through the fascia. Bovie cautery was used to strip paraspinal muscles off the spinous processes and laminae of C3 to C7. Confirmatory x-ray was taken. The exposure was widened out laterally bilaterally to expose the entire lamina and facets. Bleeding controlled throughout with Bovie cautery and thrombinated Gelfoam. At this point, we performed a mini laminotomy both at C2-C3 and C7-T1 using a high-speed drill and 1 mm and 2 mm Kerrison rongeur just to remove some of the lamina above and some of the lamina below as well as most importantly, the ligamentum flavum. At this point, we used a high-speed drill to drill intermediate through or the superficial corticol bone on the right at the lamina facet junction of C3 through C7. On the left side, we drilled essentially all the way through. We then used a 2-mm Kerrison to complete the bone and ligamentum flavum removal, thus completely disconnecting the lamina from the facet and elevating it off the dura. At this point, we carefully elevated the left side of the lamina in an open-door fashion. We then measured the interspace at C3, C5 and C7 and chose 4-mm implants. We then placed prefabricated bone grafts made by the two with specifics grooves cut into them. This technique was used at both C3, C5 and C7. The bone graft was placed so that again, it was wedged in between the left lateral lamina and the left facet with the grooves keeping it in place. We then placed a 6-mm mini screw through a fixation plate into the graft. We then used a drill to drill through both the left facet as well as the residual left lamina and spinous process and placed the same 6-mm screw through each point, thus each graft was fixated with 1 screw into the hinged lamina, the graft itself as well as the left facet. Again, this exact procedure was performed at all 3 levels at C3, C5, and C7. At the conclusion, we took x-rays which showed good position of the construct. At this point, we irrigated the area, we ensured hemostasis with thrombinated Gelfoam, particularly at the C2-C3 and C7-T1 areas. We then placed Gelfoam overlying the facet line from C6 to T1 as well as up from C3 to prevent creaking fusion. We then used the high-speed drill to decorticate the posterior and lateral facets at C4-C5 and placed chopped off products of decompression with additional bone matrix proteins over the facet to achieve posterolateral fusion. It should be noted that prior to hinging open the lamina we did perform a foraminotomy on the left at C4-C5; this was done primarily with 2-mm a Kerrison, which unroofed the exiting C5 nerve root, was used to confirm complete patency. At this point, the retractors were withdrawn, any remaining bleeding points were coagulated with bipolar and standard cautery. The muscle reapproximated using interrupted 0 Vicryl and fascia closed using tight interrupted 0 Vicryl stitch. The wound again irrigated with antibiotic solution. SubQ closed in 2 separate layers of 2-0 Vicryl. The skin closed with liss. Bacitracin ointment and a self-adhering Telfa dressing was placed. The patient was placed into a soft collar. The patient was then disconnected from the table. He was carefully turned back onto a supine position on a bed. The Ricci head fixator was removed uneventfully. It should be noted that at this point it was noted that the IV in left arm had infiltrated and the arm was rather swollen and indurated with a little bit of skin bubbling. We did notice a very good pulse. The pulse oximeter was reading 99%. After elevating and placing some more compressors, the stiffness of the arm improved dramatically. We did obtain an emergency consult with Dr. Encarnacion of the general surgery services and he recommended some bacitracin ointment, Xeroform, Telfa and elevation. At this point, the patient was aroused from anesthesia and extubated without difficulty. He was noted to be moving all groups of all 4 extremities (with exception of left deltoid) with excellent strength on his way to the recovery room. All counts were correct. Neurophysiologic monitoring which included somatosensory evoked potentials and 3-way EMG remained stable over the procedure. Petey Roldan MD
[2017-08-16] MEDS ORDERED: LOSARTAN PO SCH (10:00)
[2017-08-16] MEDS ORDERED: HYDROCHLOROTHIAZIDE PO SCH (10:00)
[2017-08-16] MEDS ORDERED: Bacitracin 500 Units/gm Oint Foilpak UD TOP ONE (10:30)
[2017-08-16] MEDS ORDERED: oxyCODONE 30 mg Immediate Release Tab PO PRN (13:27)
--- NOTE | 2017-08-16 14:27 | CP.PCM.PN ---
Subjective - Date & Time of Evaluation Date of Evaluation: 08/16/17 Time of Evaluation: 14:24 - Subjective Subjective: SPINE - POD #1 Pt resting in bed. Had "rough night". VSS Temp 99. Moves extremities actively. 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 Kerlix wrap on L forearm. Plan: Mobilize as tolerated. Wound Care consult. Objective - Vital Signs/Intake and Output Vital Signs (last 24 hours): Temp Pulse Resp BP Pulse Ox 99.7 F H 110 H 20 135/87 97 08/16/17 08:00 08/16/17 08:00 08/16/17 08:00 08/16/17 08:00 08/16/17 08:00 Intake and Output: 08/16/17 08/16/17 06:59 18:59 Intake Total 700 Output Total 600 Balance 100 - Medications Medications: Current Medications Acetaminophen (Tylenol 325mg Tab) 650 mg PO Q6 PRN PRN Reason: Fever >100.4 F Alprazolam (Xanax) 0.25 mg PO BID [facility] Stop: 08/22/17 18:01 Last Admin: 08/15/17 20:02 Dose: 0.25 mg Gabapentin (Neurontin) 600 mg PO TID [facility] Last Admin: 08/15/17 20:08 Dose: 600 mg Hydrochlorothiazide (Microzide) 12.5 mg PO DAILY [facility] Propofol (Diprivan) 1,000 mg in 100 mls @ 3.538 mls/hr IV .Q24H PRN; Protocol; 5 MCG/KG/MIN PRN Reason: TITRATE PER MD ORDER Potassium Chloride/Dextrose/Sod Cl (Potassium Chl 20 Meq In D5-1/2ns) 1,000 mls @ 100 mls/hr IV .Q10H [facility] Last Admin: 08/16/17 07:33 Dose: 100 mls/hr Losartan Potassium (Cozaar) 50 mg PO DAILY [facility] Last Admin: 08/16/17 09:38 Dose: 50 mg Nicotine (Nicoderm Cq) 1 patch TD DAILY [facility] Oxycodone HCl (Oxycodone Immediate Release Tab) 60 mg PO Q4H PRN PRN Reason: Pain, severe (8-10)
[2017-08-17] MEDS: Potassium Ch 20mEq in D5-1/2NS 1,000 ML IV SCH ×3 (03:18→13:55)
[2017-08-17] MEDS ORDERED: HYDROmorphone 0.5 mg/0.5 ml ISec IVP STA (04:36)
[2017-08-17] MEDS ORDERED: Morphine Monoject Barrel PCA 1mg/ml IV PRN (04:37)
[2017-08-17] MEDS ORDERED: oxyCODONE 40 mg ER Tab (oxyCONTIN) PO PRN (08:26)
[2017-08-17] MEDS ORDERED: oxyCODONE 40 mg ER Tab (oxyCONTIN) PO SCH (08:30)
[2017-08-17] MEDS: oxyCODONE 40 mg ER Tab (oxyCONTIN) PO SCH ×2 (08:57→17:30)
[2017-08-17] MEDS: Bacitracin Ointment 30 GM TUBE TOP SCH (10:44)
--- NOTE | 2017-08-17 12:39 | CP.PCM.CON ---
History of Present Illness - History of Present Illness History of Present Illness: Pain Mangagement: Called by Dr. Roldan to evaluate Mr. Ballesteros. Patient is a 42 yo AA male s/p cervical laminectomy on 08/[address] Roldan who had [employer] [facility] stopped today and started on PO meds by Jamar. Pt takes many pain meds at home prescribed by pain management doctor Dr. Zuhair Parrish and verified by [facility] [phone] (Hydromorphone (Exalgo) 32 mg ER 4 tabs daily, oxycondone 30mg one tab 5x daily, neruontin 600mg tid, tizanididne 4mg 2 tabs bid, xanaz 0.25mg bid). Pt states had had difficulty filing Exalgo because he says its backordered and therefore has not had it for a few weeks. Dr. Roldan started patient on (xanax 0.25mg bid, neurontin 600mg tid, dilaudid 4mg po q 3 prn, oxcodne ER 40mg po q 6). Patient has taken one dilaudid 4mg tab and one oxycondone ER 40mg this morning and claims his pain is 10/10. Discussed patient's meds with Dr. Cory Quigley from pain management who suggested adding Dilaudid 1mg IV q 3 hours prn until hospital pharmacy is able to obtain Exalgo which patient wants. Thank you for consult. For further help today please contact Percy Chinchilla MD who is inhouse anesthesiolgoist or Cory Quigley MD from Pain Management Thank you very much, Roberto Coe Past Patient History - Past Medical History & Family History Past Medical History?: Yes - Past Social History Smoking Status: Never Smoked - CARDIAC Hx Cardiac Disorders: Yes Hx Hypertension: Yes - PULMONARY Hx Respiratory Disorders: Yes Hx Sleep Apnea: Yes - NEUROLOGICAL Hx Neurological Disorder: Yes Other/Comment: complication post cervical surgery - HEENT Hx HEENT Problems: No - RENAL Hx Chronic Kidney Disease: No - ENDOCRINE/METABOLIC Hx Endocrine Disorders: Yes Hx Diabetes Mellitus Type 2: Yes (resolved) - INTEGUMENTARY Hx Dermatological Problems: Yes Other/Comment: FREQUENT ABSCESS - MUSCULOSKELETAL/RHEUMATOLOGICAL Hx Falls: No - GASTROINTESTINAL Hx Gastrointestinal Disorders: No - GENITOURINARY/GYNECOLOGICAL Hx Genitourinary Disorders: No - PSYCHIATRIC Hx Psychophysiologic Disorder: No Hx Anxiety: Yes Hx Substance Use: No - SURGICAL HISTORY Hx Surgeries: Yes Hx Gastric Bypass Surgery: Yes ( stated patient had gastric bypass and resolved DM) Hx Orthopedic Surgery: Yes (LAMINECTOMY) Other/Comment: back surgery two lamenectomies, epidurals, tent machine in his back. - ANESTHESIA Hx Anesthesia: Yes Hx Anesthesia Reactions: No Hx Malignant Hyperthermia: No Has any member of the family had a problem w/ anesthesia?: No Meds Allergies/Adverse Reactions: Allergies Allergy/AdvReac Type Severity Reaction Status Date / Time No Known Allergies Allergy Verified 08/07/17 10:26 - Medications Medications: Current Medications Acetaminophen (Tylenol 325mg Tab) 650 mg PO Q6 PRN PRN Reason: Fever >100.4 F Last Admin: 08/16/17 15:02 Dose: 650 mg Alprazolam (Xanax) 0.25 mg PO BID COUNTS [facility]CLUDE 234 BEDS AT THE [facility] Stop: 08/22/17 18:01 Last Admin: 08/17/17 10:44 Dose: 0.25 mg Bacitracin (Bacitracin) 0 gm TOP DAILY [facility]CLUDE 234 BEDS AT THE [facility] Last Admin: 08/17/17 10:44 Dose: 1 appl Gabapentin (Neurontin) 600 mg PO TID [facility]S [facility]CLUDE 234 BEDS AT THE [facility] Last Admin: 08/17/17 10:44 Dose: 600 mg Hydrochlorothiazide (Microzide) 12.5 mg PO DAILY [facility]CLUDE 234 BEDS AT THE [facility] Last Admin: 08/17/17 10:44 Dose: 12.5 mg Hydromorphone HCl (Dilaudid) 4 mg PO Q3H PRN PRN Reason: Pain, severe (8-10) Last Admin: 08/17/17 08:57 Dose: 4 mg Potassium Chloride/Dextrose/Sod Cl (Potassium Chl 20 Meq In D5-1/2ns) 1,000 mls @ 100 mls/hr IV .Q10H [facility]S [facility]CLUDE 234 BEDS AT THE [facility] Last Admin: 08/17/17 04:00 Dose: Not Given Losartan Potassium (Cozaar) 50 mg PO DAILY [facility]S INCLUDE 234 BEDS AT THE [facility] Last Admin: 08/17/17 10:44 Dose: 50 mg Nicotine (Nicoderm Cq) 1 patch TD DAILY [facility]CLUDE 234 BEDS AT THE [facility] Last Admin: 08/17/17 10:44 Dose: 1 patch Oxycodone HCl (Oxycontin Extended Release Tab) 40 mg PO Q8H [facility]S INCLUDE 234 BEDS AT THE [facility] Last Admin: 08/17/17 08:57 Dose: 40 mg Results - Vital Signs Recent Vital Signs: Last Vital Signs Temp 98.5 F 08/17/17 07:20 Pulse 98 H 08/17/17 07:20 Resp 18 08/17/17 07:20 BP 168/90 H 08/17/17 07:20 Pulse Ox 98 08/17/17 07:20
[2017-08-17] MEDS: HYDROmorphone 0.5 mg/0.5 ml ISec IVP PRN ×3 (12:57→20:32)
--- NOTE | 2017-08-17 16:51 | PN ---
SUBJECTIVE: Mr. Ballesteros remains basically bed bound. He has not made any attempt to get out of bed. He states he is having overwhelmingly severe pain of his neck and his low back. He states his left arm actually feels better and is obviously being addressed general surgery service. PHYSICAL EXAMINATION: I was able to logroll him. His posterior cervical wound looks quite good and we will start changing with bacitracin and gauze. He remains neurologically intact. I related to him the extreme importance of getting out of bed, warned him of the possibility of DVT, pulmonary emboli, pneumonia, etc. We will get his Nunn catheter out. We will have him been seen by physiotherapy and hopefully get out of bed is not actually walking today. I contacted anesthesia for pain management to optimize his pain medication as at his dose, he is complaining of severe pain despite tremendous amount of narcotic medications. Petey Roldan MD
[2017-08-18] MEDS: oxyCODONE 40 mg ER Tab (oxyCONTIN) PO SCH ×3 (00:53→17:10)
[2017-08-18] MEDS: Potassium Ch 20mEq in D5-1/2NS 1,000 ML IV SCH ×2 (00:53→01:00)
[2017-08-18 01:09] VITALS: RESP 20
[2017-08-18] MEDS: HYDROmorphone 0.5 mg/0.5 ml ISec IVP PRN ×6 (02:38→22:01)
[2017-08-18] MEDS: Bacitracin Ointment 30 GM TUBE TOP SCH ×2 (09:32→12:23)
--- NOTE | 2017-08-18 12:06 | CP.PCM.PN ---
Subjective - Date & Time of Evaluation Date of Evaluation: 08/18/17 Time of Evaluation: 12:03 - Subjective Subjective: SPINE - POD #3 Pt OOB in chair. Looks better each day. Awaiting PT for amb training. Pt lives in 12 step walk-up. Seen by Pain Management. VSS. Afebrile. Neuro remains intact. Incision clean and dry. Plan: Mobilize as dori. Prob benefit from short term rehab placement. Objective - Vital Signs/Intake and Output Vital Signs (last 24 hours): Temp Pulse Resp BP Pulse Ox 98.4 F 102 H 20 144/84 96 08/18/17 08:12 08/18/17 08:12 08/18/17 08:12 08/18/17 08:12 08/18/17 08:12 Intake and Output: 08/18/17 08/18/17 06:59 18:59 Intake Total 1958 Output Total 1800 Balance 158 - Medications Medications: Current Medications Acetaminophen (Tylenol 325mg Tab) 650 mg PO Q6 PRN PRN Reason: Fever >100.4 F Last Admin: 08/16/17 15:02 Dose: 650 mg Alprazolam (Xanax) 0.25 mg PO BID [facility] Stop: 08/22/17 18:01 Last Admin: 08/18/17 09:32 Dose: 0.25 mg Bacitracin (Bacitracin) 0 gm TOP DAILY [facility] Last Admin: 08/17/17 10:44 Dose: 1 appl Bacitracin (Bacitracin) 0 gm TOP DAILY [facility] Last Admin: 08/18/17 09:32 Dose: 1 appl Gabapentin (Neurontin) 600 mg PO TID [facility] Last Admin: 08/18/17 09:32 Dose: 600 mg Hydrochlorothiazide (Microzide) 12.5 mg PO DAILY [facility] Last Admin: 08/18/17 09:32 Dose: 12.5 mg Potassium Chloride/Dextrose/Sod Cl (Potassium Chl 20 Meq In D5-1/2ns) 1,000 mls @ 100 mls/hr IV .Q10H [facility] Last Admin: 08/18/17 01:00 Dose: Not Given Losartan Potassium (Cozaar) 50 mg PO DAILY [facility] Last Admin: 08/18/17 09:32 Dose: 50 mg Nicotine (Nicoderm Cq) 1 patch TD DAILY [facility] Last Admin: 08/18/17 09:33 Dose: 1 patch Oxycodone HCl (Oxycontin Extended Release Tab) 40 mg PO Q8H [facility] Last Admin: 08/18/17 08:55 Dose: 40 mg
[2017-08-19] MEDS: oxyCODONE 40 mg ER Tab (oxyCONTIN) PO SCH ×4 (00:22→23:47)
[2017-08-19] MEDS: HYDROmorphone 0.5 mg/0.5 ml ISec IVP PRN ×6 (01:39→21:10)
[2017-08-19] MEDS: Bacitracin Ointment 30 GM TUBE TOP SCH ×2 (10:13)
[2017-08-19] MEDS: Bacitracin 500 Units/gm Oint Foilpak UD TOP SCH (10:13)
--- NOTE | 2017-08-19 13:46 | CP.PCM.PN ---
Subjective - Date & Time of Evaluation Date of Evaluation: 08/19/17 Time of Evaluation: 13:45 - Subjective Subjective: stable amb to br today pos BM wants to go home p hopeful dc tmw aft PT Objective - Vital Signs/Intake and Output Vital Signs (last 24 hours): Temp Pulse Resp BP Pulse Ox 98.6 F 105 H 20 149/96 H 95 08/19/17 00:20 08/19/17 00:20 08/19/17 00:20 08/19/17 00:20 08/19/17 00:20 Intake and Output: 08/19/17 08/19/17 06:59 18:59 Intake Total 780 Balance 780 - Medications Medications: Current Medications Acetaminophen (Tylenol 325mg Tab) 650 mg PO Q6 PRN PRN Reason: Fever >100.4 F Last Admin: 08/16/17 15:02 Dose: 650 mg Alprazolam (Xanax) 0.25 mg PO BID [facility] Stop: 08/22/17 18:01 Last Admin: 08/19/17 10:12 Dose: 0.25 mg Bacitracin (Bacitracin) 0 gm TOP DAILY [facility] Last Admin: 08/19/17 10:13 Dose: 1 appl Bacitracin (Bacitracin) 0 gm TOP DAILY [facility] Last Admin: 08/19/17 10:13 Dose: 1 appl Bacitracin (Bacitracin) 1 ea TOP DAILY [facility] Last Admin: 08/19/17 10:13 Dose: 1 ea Docusate Sodium (Colace) 100 mg PO TID [facility] Gabapentin (Neurontin) 600 mg PO TID [facility] Last Admin: 08/19/17 10:12 Dose: 600 mg Hydrochlorothiazide (Microzide) 12.5 mg PO DAILY [facility] Last Admin: 08/19/17 10:12 Dose: 12.5 mg Hydromorphone HCl (Dilaudid) 1 mg IVP Q3 PRN PRN Reason: Pain, severe (8-10) Stop: 08/20/17 09:26 Last Admin: 08/19/17 10:07 Dose: 1 mg Losartan Potassium (Cozaar) 50 mg PO DAILY [facility] Last Admin: 08/19/17 10:12 Dose: 50 mg Nicotine (Nicoderm Cq) 1 patch TD DAILY [facility] Last Admin: 08/18/17 09:33 Dose: 1 patch Oxycodone HCl (Oxycontin Extended Release Tab) 40 mg PO Q8H [facility] Last Admin: 08/19/17 08:05 Dose: 40 mg
--- NOTE | 2017-08-19 23:55 | PN ---
DATE: 08/16/2017 CHIEF COMPLAINT: The patient is status post cervical laminoplasty and the blistering of the left forearm, status post IV extravasation. HISTORY OF PRESENT ILLNESS: This is a 42-year-old male, status post cervical laminoplasty. The patient was seen and examined at the bedside for the left arm blistering, status post IV extravasation. The patient is resting comfortably. Complained of mild pain in cervical region. There is no pain in the left arm and the left arm seems much less swollen and the patient is moving left upper extremity normally. Vital signs reviewed. PAST MEDICAL HISTORY: Reviewed. PAST SURGICAL HISTORY: Reviewed. MEDICATIONS: Reviewed. PHYSICAL EXAMINATION: GENERAL: The patient is alert and oriented x3. There is no distress. NECK: The patient's neck is in a cervical collar and unable to exam. EXTREMITIES: The left upper extremity swelling is much more reduced and very minimal blistering with the skin loss present. No sign of infection. The patient is moving left upper extremity normally. NEUROLOGIC: Unable to exam because the patient is in bed, but the patient is alert and oriented x3. GCS is 50. SKIN: Warm, dry. No ulceration. No rash. No open wound except left forearm. ASSESSMENT: This is a 42-year-old male, status post cervical laminoplasty with blistering of the left forearm, improving clinically. PLAN: The patient with the patient, the local wound care, continue with IV antibiotic. The wound can be kept open and we will follow up. Continue with the current management as per neurosurgery team. The plan discussed with the patient in detail. Adis Encarnacion MD BRAND[facility]
[2017-08-20] MEDS: HYDROmorphone 0.5 mg/0.5 ml ISec IVP PRN ×3 (01:41→07:21)
--- NOTE | 2017-08-20 03:22 | PN ---
DATE: 08/17/2017 CHIEF COMPLAINT: The patient is a 42-year-old male with left upper extremity blistering, status post IV extravasation and status post cervical laminoplasty. HISTORY OF PRESENT ILLNESS: This is a 42-year-old male who is being seen for left upper extremity blisters, status post IV extravasation. The patient was seen and examined at the bedside. The patient is improving clinically and there is much less swelling and the patient is moving approximately normal. There is no complaint of pain, no fever, and the patient has complained of mild pain in cervical region. PAST MEDICAL HISTORY: Reviewed. PAST SURGICAL HISTORY: Reviewed. MEDICATIONS: Reviewed. PHYSICAL EXAMINATION VITAL SIGNS: Reviewed. The patient is afebrile. EXTREMITIES: Left upper extremity, very minimal blistering present with skin loss. No sign of infection and palpable pulses and left upper extremity movement is normal. SKIN: Warm and dry. No ulceration. No rash. No open wound except left forearm. NEUROLOGICAL SYSTEM: The patient is alert and oriented x3. Alesha coma scale is 15. Unable to exam the motor system due to the patient is in bed. NECK: Neck is in a cervical collar and unable to exam. ASSESSMENT: This is a 42-year-old male, status post cervical laminoplasty with skin blistering, status post intravenous extravasation. The patient is improving clinically. PLAN: With the patient continue local wound care, continue with IV antibiotic and wound care consult. The plan discussed with the patient. The plan was also discussed with Neurosurgery team. Follow up as outpatient. Adis Encarnacion MD
[2017-08-20] MEDS: oxyCODONE 40 mg ER Tab (oxyCONTIN) PO SCH (08:26)
[2017-08-20 09:00] VITALS: BP 144/97; PULSE 90; TEMP 99.3; O2SAT 96
[2017-08-20] MEDS: Bacitracin Ointment 30 GM TUBE TOP SCH ×2 (09:39)
[2017-08-20] MEDS: Bacitracin 500 Units/gm Oint Foilpak UD TOP SCH (09:40)
--- NOTE | 2017-08-20 11:26 | CP.PCM.PN ---
Subjective - Date & Time of Evaluation Date of Evaluation: 08/20/17 Time of Evaluation: 11:25 - Subjective Subjective: pt has groin strain last night c/o inability to walk PT saw him and will see him again when he is able to walk can be d/c home no focal motor weakness Objective - Vital Signs/Intake and Output Vital Signs (last 24 hours): Temp Pulse Resp BP Pulse Ox 99.3 F 90 20 144/97 H 96 08/20/17 07:10 08/20/17 07:10 08/20/17 07:10 08/20/17 07:10 08/20/17 07:10 Intake and Output: 08/20/17 08/20/17 06:59 18:59 Intake Total 540 Balance 540 - Medications Medications: Current Medications Acetaminophen (Tylenol 325mg Tab) 650 mg PO Q6 PRN PRN Reason: Fever >100.4 F Last Admin: 08/16/17 15:02 Dose: 650 mg Alprazolam (Xanax) 0.25 mg PO BID [facility] Stop: 08/22/17 18:01 Last Admin: 08/20/17 09:40 Dose: 0.25 mg Bacitracin (Bacitracin) 0 gm TOP DAILY [facility] Last Admin: 08/20/17 09:39 Dose: 1 appl Bacitracin (Bacitracin) 0 gm TOP DAILY [facility] Last Admin: 08/20/17 09:39 Dose: 1 appl Bacitracin (Bacitracin) 1 ea TOP DAILY [facility] Last Admin: 08/20/17 09:40 Dose: 1 ea Docusate Sodium (Colace) 100 mg PO TID [facility] Last Admin: 08/20/17 09:40 Dose: 100 mg Gabapentin (Neurontin) 600 mg PO TID [facility] Last Admin: 08/20/17 09:40 Dose: 600 mg Hydrochlorothiazide (Microzide) 12.5 mg PO DAILY [facility] Last Admin: 08/20/17 09:40 Dose: 12.5 mg Losartan Potassium (Cozaar) 50 mg PO DAILY [facility] Last Admin: 08/20/17 09:40 Dose: 50 mg Nicotine (Nicoderm Cq) 1 patch TD DAILY [facility] Last Admin: 08/20/17 09:39 Dose: 1 patch Oxycodone HCl (Oxycontin Extended Release Tab) 40 mg PO Q8H [facility] Last Admin: 08/20/17 08:26 Dose: 40 mg
[2017-08-20] MEDS ORDERED: HYDROmorphone 1 mg/ml ISec IVP PRN (12:15)
[2017-08-20] MEDS ORDERED: HYDROmorphone 0.5 mg/0.5 ml ISec IVP PRN ×2 (12:45→13:57)
[2017-08-20 14:00] LABS: BASO # 0.1 K/uL (0.0-0.2); BASO % 0.5 % (0.0-2.0); EOS # 0.4 K/uL (0.0-0.7); EOS % 2.4 % (0.0-4.0); HEMATOCRIT 39.8 % (35.0-51.0); LYMPH # 2.1 K/uL (1.0-4.3); LYMPH % 14.6 % (20.0-40.0); MEAN CELL VOLUME 83.6 fL (80.0-94.0); MEAN CORPUSCULAR HEMOGLOBIN 27.7 pg (27.0-31.0); MEAN CORPUSCULAR HGB CONC 33.2 g/dL (33.0-37.0); MEAN PLATELET VOLUME 7.4 fL (7.2-11.7); MONO # 1.6 K/uL (0.0-0.8); MONO % 11.2 % (0.0-10.0); RED CELL DISTRIBUTION WIDTH 15.8 % (11.5-14.5); WHITE BLOOD COUNT 14.5 K/uL (4.8-10.8)
[2017-08-20 14:04] LABS: INR 1.1
[2017-08-20 14:21] LABS: CHLORIDE 94 mmol/L (98-107); POTASSIUM 3.7 mmol/L (3.6-5.2); SODIUM 137 mmol/L (132-148)
[2017-08-20 14:23] LABS: ALB/GLOB RATIO 1.1 (1.0-2.1); ALKALINE PHOSPHATASE 75 U/L (38-126); AST/SGOT 34 U/L (17-59); BILIRUBIN,TOTAL 0.6 mg/dL (0.2-1.3); CARBON DIOXIDE 30 mmol/L (22-30); GFR AFRICAN-AMERICAN > 60; TOTAL PROTEIN 6.8 g/dL (6.3-8.3)
[2017-08-20 14:24] LABS: ALT/SGPT 42 U/L (21-72); BLOOD UREA NITROGEN 12 mg/dL (9-20); GLUCOSE,RANDOM 144 mg/dL (75-110)
[2017-08-20] MEDS ORDERED: HYDROmorphone 0.5 mg/0.5 ml ISec IM PRN (14:49)
--- NOTE | 2017-08-20 15:57 | CP.PCM.PN ---
Subjective - Date & Time of Evaluation Date of Evaluation: 08/20/17 Time of Evaluation: 15:55 - Subjective Subjective: PT SEEN THIS AFTERNOON BY DR. BARTLETT AND CLEARED FOR D/C HOME WITH HOME PHY THER IF ABLE TO AMBULATE HERE PRIOR TO D/C. UNABLE TO ENTER D/C ORDER FROM OFFICE AND REQUESTING THAT [employer] PLACE ORDER FOR HIM. PT HAS ALL MEDS AT HOME , NO NEW RX GIVEN BY [employer]. TO F/U WITH PMD AND NEUROSURGEON WITHIN 1 WEEK. NO FURTHER ORDERS. Objective - Vital Signs/Intake and Output Vital Signs (last 24 hours): Temp Pulse Resp BP Pulse Ox 99.3 F 90 20 144/97 H 96 08/20/17 07:10 08/20/17 07:10 08/20/17 07:10 08/20/17 07:10 08/20/17 07:10 Intake and Output: 08/20/17 08/20/17 06:59 18:59 Intake Total 540 Balance 540 - Medications Medications: Current Medications Acetaminophen (Tylenol 325mg Tab) 650 mg PO Q6 PRN PRN Reason: Fever >100.4 F Last Admin: 08/16/17 15:02 Dose: 650 mg Alprazolam (Xanax) 0.25 mg PO BID [facility] Stop: 08/22/17 18:01 Last Admin: 08/20/17 09:40 Dose: 0.25 mg Bacitracin (Bacitracin) 0 gm TOP DAILY [facility] Last Admin: 08/20/17 09:39 Dose: 1 appl Bacitracin (Bacitracin) 0 gm TOP DAILY [facility] Last Admin: 08/20/17 09:39 Dose: 1 appl Bacitracin (Bacitracin) 1 ea TOP DAILY [facility] Last Admin: 08/20/17 09:40 Dose: 1 ea Docusate Sodium (Colace) 100 mg PO TID [facility] Last Admin: 08/20/17 13:07 Dose: 100 mg Gabapentin (Neurontin) 600 mg PO TID [facility] Last Admin: 08/20/17 13:07 Dose: 600 mg Hydrochlorothiazide (Microzide) 12.5 mg PO DAILY [facility] Last Admin: 08/20/17 09:40 Dose: 12.5 mg Hydromorphone HCl (Dilaudid) 2 mg IM Q3H PRN PRN Reason: Pain, moderate (4-7) Last Admin: 08/20/17 15:05 Dose: 2 mg Losartan Potassium (Cozaar) 50 mg PO DAILY [facility] Last Admin: 08/20/17 09:40 Dose: 50 mg Nicotine (Nicoderm Cq) 1 patch TD DAILY [facility] Last Admin: 08/20/17 09:39 Dose: 1 patch Oxycodone HCl (Oxycontin Extended Release Tab) 40 mg PO Q8H [facility] Last Admin: 08/20/17 08:26 Dose: 40 mg - Labs Labs: 08/20/17 13:54 08/20/17 13:54 PT 12.1 SECONDS (9.7-12.2) 08/20/17 13:54 INR 1.1 08/20/17 13:54
== END 2017-08-20 16:27 | disposition home or self-care (01) | DRG 454 ==
LOC: C.SDS 10:06 → EDSTATUS 11:00 → C.9S 16:30 → C.6T 18:41
PROVIDERS: ADMIT Neurological Surgery; ATTEND Neurological Surgery
PROC: 0RG20AJ Fusion of 2 or more Cervical Vertebral Joints with Interbody Fusion Device, Posterior Approach, Anterior Column, Open Approach (ICD-10-PCS; 2017-08-15)
PROC: 0RG2071 Fusion of 2 or more Cervical Vertebral Joints with Autologous Tissue Substitute, Posterior Approach, Posterior Column, Open Approach (ICD-10-PCS; 2017-08-15)
PROC: 0PQ Upper Bones, Repair (ICD-10-PCS; principal; 2017-08-15 11:00)
DX: M48.02 Spinal stenosis, cervical region (principal); G95.20 Unspecified cord compression; I10 Essential (primary) hypertension; M50.221 Other cervical disc displacement at C4-C5 level; Z87.11 Personal history of peptic ulcer disease; G47.30 Sleep apnea, unspecified; Z98.84 Bariatric surgery status; Z68.37 Body mass index [BMI] 37.0-37.9, adult; T80.89XA Other complications following infusion, transfusion and therapeutic injection, initial encounter

== ENCOUNTER 2017-12-05 10:46 | Day surgery (SDC) | payer OTHER ==
[2017-12-03 10:55] VITALS: BMI 33.5
[2017-12-05] MEDS ORDERED: ceFAZolin IV 1 gm in Dextrose 1 GM/50 ML BAG IVPB ONE ×2 (13:03→13:31)
[2017-12-05] MEDS ORDERED: Bupivacaine HCl 0.25% PF (10 ml) Inj ONE (13:03)
[2017-12-05] MEDS ORDERED: Lidocaine 1% Inj (20ml) ONE (13:04)
[2017-12-05] MEDS ORDERED: Lactated Ringer's 1,000 ML IV ONE (13:15)
[2017-12-05] MEDS ORDERED: Midazolam 2 MG/2 ML VIAL ONE (13:18)
[2017-12-05] MEDS ORDERED: Propofol 10 mg/ml Inj (20 ML) ONE (13:18)
[2017-12-05] MEDS ORDERED: HYDROmorphone 0.5 mg/0.5 ml ISec IVP PRN (13:59)
[2017-12-05] MEDS ORDERED: Oxycodone/Acetaminophen 5/325 mg Tab PO PRN (14:05)
[2017-12-05 14:10] VITALS: O2SAT 100
[2017-12-05 16:01] VITALS: BP 147/90; PULSE 90; RESP 18; TEMP 98
--- NOTE | 2017-12-06 07:57 | OP ---
PROCEDURE DATE: 12/05/2017 PREOPERATIVE DIAGNOSIS: Mass of left neck. POSTOPERATIVE DIAGNOSIS: Mass of left neck. PROCEDURE: Deep excision of mass of left neck. SURGEON: Zuhair Pereira MD TYPE OF ANESTHESIA: General. ESTIMATED BLOOD LOSS: 20 mL. POSTOPERATIVE CONDITION: Stable. INDICATIONS FOR SURGERY: This is a 42-year-old male with an enlarging mass of his left neck, who will now undergo removal in the operating room. DESCRIPTION OF PROCEDURE: Patient was taken to the operating room. General anesthesia was administered. The left neck was prepped and draped. A generous elliptical incision was made surrounding the mass, which was dissected in the fascial layer and removed. Bleeding was controlled using the Bovie. A large neck blood vessel was repaired. The wound was irrigated with saline. Generous tissue flaps raised using the Bovie and adjacent tissue transfer closure was performed with multiple layers of Monocryl, subcuticular Monocryl and glue. The patient tolerated the procedure well and was transferred to recovery room in stable condition. Zuhair Pereira MD
== END 2017-12-05 18:00 | disposition home or self-care (01) ==
LOC: C.OPSURG 10:46
PROVIDERS: ATTEND Surgery
DX: L72.0 Epidermal cyst (principal); L72.3 Sebaceous cyst
CPT/HCPCS: 11423; 88307; J0690; J2250; J2704; J3010; J7120

== ENCOUNTER 2017-12-17 10:32 | Day surgery (SDC) | payer OTHER ==
[2017-12-03 10:55] VITALS: BMI 33.5
[2017-12-17] MEDS ORDERED: ceFAZolin IV 1 gm in Dextrose 1 GM/50 ML BAG IVPB ONE (12:18)
[2017-12-17] MEDS ORDERED: Bacitracin 500 Units/gm Oint Foilpak UD ONE (12:19)
[2017-12-17] MEDS ORDERED: Propofol 10 mg/ml Inj (20 ML) ONE ×2 (12:23→12:41)
[2017-12-17] MEDS ORDERED: Midazolam 2 MG/2 ML VIAL ONE (12:23)
[2017-12-17] MEDS ORDERED: Bupivacaine HCl 0.25% PF (10 ml) Inj ONE (12:58)
[2017-12-17] MEDS ORDERED: Lidocaine 1% Inj (20ml) ONE (12:58)
--- NOTE | 2017-12-17 13:11 | PCM.SURG1 ---
Surgeon's Initial Post Op Note - Surgeon's Notes Surgeon: Chad Pin Machine Operator: Laine Type of Anesthesia: General LMA Anesthesia Administered By: staff Pre-Operative Diagnosis: Scrotal abcess/scrotal gangrene Operative Findings: scrotal abcess/Katelynn abcess necrotic tissue(gangrene) Post-Operative Diagnosis: same Operation Performed: Scrotal abcess drainage/excison of necrotic tissue Specimen/Specimens Removed: necrotic tissue/cultore of expressed puss Estimated Blood Loss: EBL {In ML}: 0 Blood Products Given: N/A Drains Used: No Drains Post-Op Condition: Good Date of Surgery/Procedure: 12/17/17 Time of Surgery/Procedure: 13:12
[2017-12-17] MEDS ORDERED: Lactated Ringer's 1,000 ML IV ONE ×3 (13:15→14:51)
[2017-12-17] MEDS ORDERED: Sodium Chloride 0.9% 1,000 ML IV ONE (14:51)
[2017-12-17 15:07] VITALS: RESP 16; O2SAT 97
[2017-12-17 16:19] VITALS: BP 149/76; PULSE 100; TEMP 97.1
--- NOTE | 2017-12-17 19:32 | OP ---
PROCEDURE DATE: 12/17/2017 PREOPERATIVE DIAGNOSES: Scrotal abscess and scrotal gangrene. PROCEDURE: Drainage of scrotal abscess and excision of gangrenous tissue in abscess cavity. PROCEDURE IN DETAIL: The patient signed the detailed informed consent prior to the procedure. He is aware that this procedure may not cure his abscess problems in the scrotum and that further procedure may be necessary. He is aware of the risks and complications of this procedure and is willing to proceed. He signed the consent in the presence of his and he was brought into the room and draped and prepped in the usual manner. He was given prophylactic antibiotics and the scrotum was palpated. On palpation of the abscess cavity on the left, pus came out from a fistulous tract of the skin. The pus was cultured. The tract was dilated with a Lois clamp and then an incision was made over the indurated area superior to the drainage point and carried down to the subcutaneous tissues. There was a fibrotic cavity, which was excised in its whole and sent for pathological analysis. The area was inspected for bleeding, none occurred. It was irrigated copiously and then closed with 3-0 chromic suture. There was a smaller abscess cavity on the right and this was simply opened with a Lois clamp and drained. There was not a large sac as on the left. The area was irrigated and all the pus was expressed. The patient tolerated this procedure very well. The tissue around the openings and the incisions were infiltrated with anesthetic solution. The patient tolerated this well. Bacitracin and dry sterile dressing was placed on the scrotum and the patient was sent to the recovery room in good condition. The patient was given detailed postoperative instructions and follow up appointment in our office in 2 weeks. Donal Bonilla MD
== END 2017-12-17 15:30 | disposition home or self-care (01) ==
LOC: C.SDS 10:32
PROVIDERS: ATTEND Urology
DX: N49.2 Inflammatory disorders of scrotum (principal); N49.3 Fournier gangrene; Z79.899 Other long term (current) drug therapy; F17.210 Nicotine dependence, cigarettes, uncomplicated
CPT/HCPCS: 55100; 82948; 87070; 88304; J0690; J1170; J2250; J2704; J3010; J7120